=== PATIENT | male | born 1940 | race Caucasian/White ===

== ENCOUNTER 2018-03-04 13:46 | Observation (INO) ==
[2018-03-04] MEDS ORDERED: Naloxone 0.4 MG/ML INJ IVP PRN (18:54)
[2018-03-04] MEDS ORDERED: Acetaminophen 325 MG TABLET PO PRN (18:54)
[2018-03-04] MEDS ORDERED: *HR* HYDROcodone/Acet 5/325 mg TABLET PO PRN (18:54)
[2018-03-04] MEDS ORDERED: *HR* Heparin 5,000 UNIT/ML VIAL IVP PRN ×2 (19:08)
--- NOTE | 2018-03-04 19:35 | Internal Med History&Physical ---
<Wilder Noyola - Last Filed: 03/04/18 22:13> Date of Encounter: 03/04/18 Time of Encounter: 18:00 Internal Medicine - H&P: HPI Chief complaint: Chest pain Admitted From: Intrahospital Transfer Plans for Post Hospital Care: Home History of present illness: Mr. Branch is a 77 year old male w/PMH of arthritis, KAREN on CPAP @ night, HLD, HTN, kidney stones, gout, stent placement 1 in 2010 and aortic valve replacement w/porcine valve in 2011 presents from [place] with chief complaint of chest pain that began yesterday and patient describes as centralized pressure/ache in his chest which began at rest and is without radiation. Patient describes pressure as constant. Reports taking one nitroglycerin in ED which did not help. No alleviating or aggravating factors. Associated symptoms: SOB and nausea. Reports drinking one beer, or one shot of whiskey, or one glass of wine daily. Denies hx of DVT/PE. Patient denies recent illness, fever, chills, vomiting, headache, changes in vision, unusual bleeding, cough, chest congestion, abdominal pain, diarrhea, constipation, dizziness, lightheadedness, numbness, tingling, pre-syncope, or syncope. Past Med Surg Social Fam HX - Past Medical History Source: patient, old records reviewed Medical history: arthritis, hyperlipidemia, hypertension, kidney stones, other Additional medical history: GOUT Psychiatric history: no psych history - Past Surgical History Surgical History: angioplasty/stent (x1 in 2010), appendectomy, cancer surgery, cataract, coronary bypass (CABG), heart valve replacement (Porcine valve in 2011 ), prostatectomy, tonsilectomy, vasectomy - Social History Smoking Status: Former smoker Packs per day: 1 PPD. Reports quitting in 1984 Smokeless Tobacco Status: No Alcohol use: heavy, recent Drug use: none Current living situation: Home, With Family Activity Level: Independent ambulation Recent Out of Country Travel Within the Last 8 Weeks: No Exposure or Possible Exposure to Illness During Travel: No - Family History Father Race: Family Member Ethnicity: Non- Living Status: Age at : 84 Cause of : Unknown Hx Family Neuromuscular Disorders: Yes (Essential tremors) Mother Race: Family Member Ethnicity: Non- Living Status: Age at : 83 Cause of : TIAs Hx Family Cardiac Disorders: Yes (TIAs) Hx Family Neurologic Disorders: Yes (TIAs) Sister Race: Family Member Ethnicity: Non- Living Status: Still Living Hx Family Cardiac Disorders: Yes (CAD) Grandfather Race: Family Member Ethnicity: Non- Living Status: Age at : 65 Cause of : CVA Hx Family Cardiac Disorders: Yes (CVA) Hx Family Neurologic Disorders: Yes (CVA) Grandmother Race: Family Member Ethnicity: Non- Living Status: Age at : 80 Cause of : Old age Internal Medicine - H&P: Meds Allopurinol [Zyloprim 100 MG] 100 mg PO BID 11/29/15 [History] Aspirin 81 mg PO DAILY 11/29/15 [History] Atorvastatin [Lipitor] 40 mg PO DAILY 11/29/15 [History] Loratadine [Allergy Relief] 10 mg PO DAILY 03/04/18 [History] Metoprolol [Lopressor] 25 mg PO BID 03/04/18 [History] Cholecalciferol (Vitamin D3) [Vitamin D3] 2,000 unit PO DAILY 03/05/18 [History] Fluticasone Propionate Nasal [Flonase] 1 spr NS DAILY PRN 03/05/18 [History] Lisinopril [Zestril] 20 mg PO DAILY 03/05/18 [History] hydroCHLOROthiazide [Hydrochlorothiazide] 25 mg PO DAILY 03/05/18 [History] 3 Allergy/AdvReac Type Severity Reaction Status Date / Time Sulfa (Sulfonamide Allergy Severe Rash Verified 03/05/18 13:23 Antibiotics) milk AdvReac Intermediate Nausea Verified 03/05/18 13:30 All Systems PM: A 10-system review of systems was performed and is negative for pertinent findings except as documented above in the HPI. - Constitutional Constitutional: no chills, no fever(s), no night sweats - EENT Eyes: no change in vision, no discharge, no pain, no photophobia Ears: no ear discharge, no ear pain, no tinnitus Nose, mouth and throat: no dysphagia, no nasal discharge, no neck pain, no sore throat - Breasts Breasts: as per HPI - Cardiovascular Cardiovascular ROS IM: as per HPI, chest pain, dyspnea, dyspnea on exertion, irregular heart rhythm (Hx of heart murmur), no diaphoresis, no lightheadedness , no palpitations, no syncope - Respiratory Respiratory: as per HPI, dyspnea, dyspnea on exertion, no cough, no wheezing, no excessive phlegm production - Gastrointestinal Gastrointestinal: no abdominal pain, no diarrhea, no hematemesis, no hematochezia, no melena, no nausea, no vomiting - Genitourinary Genitourinary ROS male: as per HPI - Musculoskeletal Musculoskeletal ROS IM: as per HPI, no numbness, no tingling - Integumentary Integumentary IM: as per HPI, no rash, no unusual bruising - Neurological Neurological ROS: as per HPI, no confusion, no convulsions, no focal weakness, no numbness, no tingling, no tremor(s) - Psychiatric Psychiatric: as per HPI - Endocrine Endocrine IM: as per HPI - Hematologic/Lymphatic Hematologic/Lymphatic: no easy bruising - Allergic/Immunologic Allergic/Immunologic: as per HPI - Constitutional Vitals: Temp Pulse Resp BP Pulse Ox 98.2 F 75 16 173/97 96 03/04/18 16:32 03/04/18 16:32 03/04/18 16:32 03/04/18 16:32 03/04/18 16:32 General appearance: Present: cooperative, mild distress (CP), A&O X 3, pleasant , obese, answers questions appropriately - Head Head exam: Present: atraumatic, normocephalic - Eye Eye exam: Present: PERRL, conjuntiva pink, sclera anicteric Pupils: Present: PERRL - ENT ENT exam: Present: normal exam - Neck Neck exam general surgery: Present: normal inspection, supple, trachea midline. Absent: lymphadenopathy - Respiratory Respiratory exam: Present: CTAB. Absent: accessory muscle use, rales, rhonchi, wheezes - Cardiovascular Cardiovascular exam: Present: irregular rhythm - GI/Abdominal GI/Abdominal exam: Present: normal bowel sounds, soft, no peritoneal signs. Absent: distended, tenderness - Rectal Rectal exam: Present: deferred - Additional comments: exam deferred. - Extremities Exam Extremities exam: Present: warm, radial pulses palpable and symmetrical. Absent : calf tenderness, cyanotic, pedal edema - Back Exam Back exam: Present: normal inspection - Neurological Exam Neurological exam: Present: CN II-XII intact, oriented X3, no focal deficits. Absent: pronater drift, facial droop, speech deficit - Psychiatric Psychiatric exam: Present: normal affect, normal mood - Skin Skin exam: Present: dry, intact Internal Med - H&P Results - Labs CBC & Chem 7: 03/04/18 20:06 - Diagnostic Studies Chest x-ray Additional comments: EXAMINATION: SINGLE XRAY VIEW OF THE CHEST 03/04/2018 11:27 am COMPARISON: None. HISTORY: ORDERING SYSTEM PROVIDED HISTORY: chest pain Initial encounter FINDINGS: The cardiac silhouette is enlarged. There is pulmonary vascular congestion. Probable small left pleural effusion with adjacent atelectasis. The right lung is clear. No pneumothorax. No overt pulmonary edema. The osseous structures are otherwise unremarkable. Status post median sternotomy. XR/XR chest 1V portable IMPRESSION: Cardiomegaly with mild pulmonary vascular congestion and small left pleural effusion. D/ / Soni Maldonado MD / Soni Maldonado MD Interpreting Provider: Soni Maldonado MD CT scan - chest Additional comments: EXAMINATION: CTA OF THE CHEST 03/04/2018 1:25 pm TECHNIQUE: CTA of the chest was performed after the administration of intravenous contrast. Multiplanar reformatted images are provided for review. MIP images are provided for review. Dose modulation, iterative reconstruction, and/or weight based adjustment of the mA/kV was utilized to reduce the radiation dose to as low as reasonably achievable. COMPARISON: None HISTORY: ORDERING SYSTEM PROVIDED HISTORY: rule out PE 75 ml of ISOVUE 370 Acute left-sided chest pain and shortness of breath, initial exam FINDINGS: Pulmonary Arteries: There is adequate opacification of the pulmonary arteries through the segmental level. No filling defects are identified to indicate pulmonary embolic disease. The pulmonary arteries are of normal caliber. Mediastinum: The heart size is enlarged. The patient is status post sternotomy. Coronary calcification is noted. There is no pericardial effusion. Small mediastinal lymph nodes are noted. A prosthetic aortic valve is noted. Lungs/pleura: There is no pneumothorax, edema or focal consolidation. There is mild dependent atelectasis at the lung bases. Upper Abdomen: No acute process is noted in the upper abdomen. Soft Tissues/Bones: There is a probable sebaceous cyst along the left upper chest wall. An acute osseous abnormality is not identified. There is mild degenerative change of the spine. CT/CT angio chest IMPRESSION: No evidence of pulmonary embolism or acute pulmonary abnormality. Cardiomegaly. D/ / 03/04/2018 13:47:07 Roberto Finley MD / Sara Sales Interpreting Provider: Roberto Finley MD - Assessment and plan (1) Chest pain Current Visit: Yes Status: Acute Assessment and plan: Acute CP that began yesterday and patient describes as centralized pressure/ ache in his chest which began at rest and is without radiation. Patient describes pressure as constant. Reports taking one nitroglycerin in ED which did not help. No alleviating or aggravating factors. Associated symptoms: SOB and nausea. Hx of stent placement x1 in 2010. Hx of aortic valve replacement w/ porcine valve in 2011. Pt. given aspirin and nitro x1 in [place] ED. Pt. reports nitro did not help CP. States Dr. Rowe is his [facility]. Cardiology consult ordered and discussed w/Dr. Lyndon Sheehan and I appreciate the consult and recommendations as always. Continue pts. Lipitor. Continuous cardiac telemetry. Echocardiogram. Initial troponin 0.15. Second 2.38. Will trend third. Low-dose heparin drip started in [facility] and will be continued. SL Nitro PRN. NPO @ midnight per Dr. Sheehan if intervention needed in a.m. Pt. discussed w/Dr. George who agrees w/plan of care. Pt. is high risk for further morbidity and cardiac event based on current sx and CP, hx of previous stent placement and aortic valve replacement, elevated troponins requiring heparin drip w/monitoring, hx; and risk factors of HLD, HTN, and previous tobacco abuse. Observation. Qualifiers: Chest pain type: other chest pain Qualified Code(s): R07.89 - Other chest pain; R07.8 - Other chest pain (2) SOB (shortness of breath) Current Visit: Yes Status: Acute Assessment and plan: Acute SOB accompanying CP sx. supplemental O2 with titration and SPO2 monitoring. Falls/safety precautions. Up with assist only. (3) Nausea Current Visit: Yes Status: Acute Assessment and plan: Acute nausea accompanying CP. IVP Zofran 4 mg Q6HR PRN for N/V. (4) HLD (hyperlipidemia) Current Visit: Yes Status: Chronic Assessment and plan: Hx of chronic HLD. Lipid panel in a.m. labs. Continue pts. Lipitor. Qualifiers: Hyperlipidemia type: pure hypercholesterolemia Qualified Code(s): E78.00 - Pure hypercholesterolemia, unspecified; E78.0 - Pure hypercholesterolemia (5) HTN (hypertension) Current Visit: Yes Status: Chronic Assessment and plan: Hx of chronic HTN. Monitor pt. and VS. Continue patient's metoprolol daily. IVP hydralazine 10 mg every 6 hours when necessary with parameters ordered for breakthrough HTN. Hold BP meds if pt. becomes hypotensive. Qualifiers: Hypertension type: essential hypertension Qualified Code(s): I10 - Essential (primary) hypertension (6) Gout Current Visit: Yes Status: Chronic Assessment and plan: Hx of chronic gout. Continue patient's Allopurinol. Qualifiers: Gout site: unspecified site Gout etiology: unspecified cause Chronicity: chronic Presence of tophus: without tophus Qualified Code(s): M1A.9XX0 - Chronic gout, unspecified, without tophus (tophi) (7) KAREN (obstructive sleep apnea) Current Visit: Yes Status: Chronic Assessment and plan: Hx of chronic KAREN. Order CPAP HS. (8) DVT prophylaxis Current Visit: Yes Status: Acute Assessment and plan: Patient placed on low-dose heparin drip due to current chest pain and elevated troponin. Monitor patient for signs of bleeding. - Time Spent With Patient Total time spent is greater than 50% in coordination of care (as documented) at patient's floor/unit and/or counseling patient: Greater than 35 minutes <Holden George - Last Filed: 03/06/18 02:49> Date of Encounter: 03/06/18 Internal Medicine - H&P: HPI History of present illness: Mr. Branch is a 77 year old male All Systems PM: A 10-system review of systems was performed and is negative for pertinent findings except as documented above in the HPI. - Constitutional Vitals: Temp Pulse Resp BP Pulse Ox 99.5 F 80 18 118/96 92 03/05/18 23:26 03/05/18 23:50 03/05/18 23:26 03/05/18 23:26 03/05/18 23:26 Internal Med - H&P Results - Labs CBC & Chem 7: 03/05/18 05:00 03/05/18 05:00 Labs: Short CBC 03/05/18 Range/Units 05:00 WBC 11.0 (4.3-11.1) K/mcL Hgb 14.5 (12.9-16.9) g/dL Hct 42.7 (37.5-50.1) % Plt Count 184 (140-400) K/mcL Neutrophils # 8.7 (1.6-8.9) K/mcL BMP 03/05/18 05:00 Sodium 138 Potassium 4.1 Chloride 103 Carbon Dioxide 27 BUN 20 Creatinine 1.06 Glucose 148 H Calcium 9.4 Cardiac Enzymes 03/05/18 Range/Units 06:38 Troponin I 15.33 H* (< 0.04) ng/mL Liver Function 03/05/18 03/05/18 Range/Units 05:00 05:00 Total Bilirubin 1.2 H 1.3 H (0.3-1.0) mg/dL Direct Bilirubin 0.1 (0.0-0.2) mg/dL AST 99 H 98 H (13-39) Units/L ALT 22 21 (7-52) Units/L Alkaline Phosphatase 75 75 (34-104) Units/L Albumin 4.1 4.1 (3.5-5.7) g/dL - Impressions ITS Impressions Echocardiogram 03/05/18 07:00 Impressions: LVEF 60-65%. Mild concentric left ventricular hypertrophy. Indeterminate diastolic function. Normal right ventricular structure and function. Prosthetic aortic valve not well visualized. Normal function by Doppler. No significant regurgitation. Moderate mitral stenosis, MG 5 mmHg at 77 bpm. Mild-moderate tricuspid regurgitation. Mild pulmonic regurgitation. Mild pulmonary hypertension. Left Ventricular Wall Motion: Rest Echo Findings All wall segments showed normal motion. Findings: Study Quality * Technically adequate exam. ECG Findings * Normal sinus rhythm. Left Ventricle * LVEF 60-65%. * Mild concentric left ventricular hypertrophy. * Indeterminate diastolic function. Right Ventricle * Normal right ventricular structure and function. Left Atrium * Moderately dilated left atrium. Right Atrium * Normal right atrial size. Aortic Valve * No aortic regurgitation. * Prosthetic aortic valve not well visualized. * No aortic stenosis. Mitral Valve * Moderate mitral stenosis, MG 5 mmHg. * Trace mitral regurgitation. * Mitral valve leaflet excursion appears reduced but not optimally visualzied. * Moderate mitral annular calcification Tricuspid Valve * Tricuspid valve not well visualized. * Mild-moderate tricuspid regurgitation. * Estimated RA pressure is 3 mmHg. * Estimated RVSP is 42 mmHg. * Mild pulmonary hypertension. Pulmonic Valve * Pulmonic valve is not well visualized. * No pulmonic stenosis. * Mild pulmonic regurgitation. Pulmonary Artery * Pulmonary artery not well visualized. Aorta * Aorta not optimally visualized. Pericardium * There is no pericardial effusion present. Interatrial Septum * No evidence of PFO by color Doppler. IVC * The IVC is not dilated. - Attending Attestation Seen and assessed. Agree with plan per [employer] HEL[employer]. Continue management for chest pain - Assessment and plan (1) HLD (hyperlipidemia) Current Visit: No Status: Chronic Qualifiers: Hyperlipidemia type: pure hypercholesterolemia Qualified Code(s): E78.00 - Pure hypercholesterolemia, unspecified; E78.0 - Pure hypercholesterolemia (2) HTN (hypertension) Current Visit: No Status: Chronic Qualifiers: Hypertension type: essential hypertension Qualified Code(s): I10 - Essential (primary) hypertension (3) KAREN (obstructive sleep apnea) Current Visit: No Status: Chronic (4) Non-STEMI (non-ST elevated myocardial infarction) Current Visit: Yes Status: Acute - Time Spent With Patient Total time spent is greater than 50% in coordination of care (as documented) at patient's floor/unit and/or counseling patient:
[2018-03-04] MEDS ORDERED: Ondansetron 4 MG/2 ML VIAL IVP PRN (19:58)
[2018-03-04 20:30] LABS: Hematocrit 45.9 % (37.5-50.1); Hemoglobin 15.7 g/dL (12.9-16.9); Mean Corpuscular HGB Conc 34.2 g/dL (31.6-35.5); Mean Corpuscular Hemoglobin 31.6 pg (28.0-33.3); Mean Corpuscular Volume 92.4 fL (83.0-100.0); Mean Platelet Volume 9.9 fL (9.4-12.4); Platelet Count 192 K/mcL (140-400); Red Blood Count 4.97 M/mcL (4.19-5.50); Red Cell Distribution Width 13.2 % (11.5-14.5)
[2018-03-04 20:40] LABS: Heparin anti-factor XA UFH 0.53 IU/mL (0.30-0.70)
[2018-03-04 20:41] LABS: Prothrombin Time 10.9 Seconds (9.4-12.1)
[2018-03-04] MEDS: Heparin 25,000 UNIT/500 ML D5W 25,000 UNIT/500 ML BAG IVC SCH (20:58)
[2018-03-04] MEDS ORDERED: Nitroglycerin 0.4 MG TAB.SUBL SL PRN (21:08)
[2018-03-04] MEDS ORDERED: *HR* Morphine 2 MG/ML SYRINGE IVP PRN (22:15)
[2018-03-04] MEDS: hydroCHLOROthiazide 25 MG TABLET PO SCH (22:28)
[2018-03-05 05:29] LABS: Basophils % 0.2 %; Eosinophils % 0.2 %; Hematocrit 42.7 % (37.5-50.1); Hemoglobin 14.5 g/dL (12.9-16.9); Immature Granulocytes % 0.4 % (0-4); Lymphocytes # 1.5 K/mcL (0.6-4.6); Lymphocytes % 13.6 %; Mean Corpuscular Hemoglobin 31.1 pg (28.0-33.3); Mean Corpuscular Volume 91.6 fL (83.0-100.0); Monocytes # 0.7 K/mcL (0.0-1.3); Monocytes % 6.7 %; Neutrophils # 8.7 K/mcL (1.6-8.9); Platelet Count 184 K/mcL (140-400); Red Blood Count 4.66 M/mcL (4.19-5.50); Red Cell Distribution Width 13.2 % (11.5-14.5); Segmented Neutrophils % 78.9 %
[2018-03-05 05:35] LABS: Heparin anti-factor XA UFH 0.37 IU/mL (0.30-0.70); Prothrombin Time 11.4 Seconds (9.4-12.1)
[2018-03-05 05:37] LABS: Activated Partial Thrombo Time 63.7 Seconds (26.0-36.0)
[2018-03-05 05:52] LABS: Alanine Aminotransferase 22 Units/L (7-52); Albumin 4.1 g/dL (3.5-5.7); Albumin/Globulin Ratio 1.6 (1.1-2.2); Alkaline Phosphatase 75 Units/L (34-104); Aspartate Amino Transferase 99 Units/L (13-39); BUN/Creatinine Ratio 19 (6-26); Bilirubin,Total 1.2 mg/dL (0.3-1.0); Blood Urea Nitrogen 20 mg/dL (8-23); Calcium 9.4 mg/dL (8.6-10.3); Carbon Dioxide 27 mEq/L (23-29); Chloride 103 mEq/L (98-107); Chol/HDL Ratio 3.3 (0-4.9); Cholesterol 137 mg/dL (< 200); Globulin 2.5 g/dL (2.4-3.5); Glucose 148 mg/dL (70-105); HDL Cholesterol 42 mg/dL (40-59); LDL Cholesterol,Calculated 68 mg/dL (0-99); Magnesium 1.8 mg/dL (1.6-2.6); Osmolality,Calculated 291 (280-300); Potassium 4.1 mEq/L (3.5-5.1); Sodium 138 mEq/L (136-145); Total Protein 6.6 g/dL (6.4-8.9); Triglycerides 133 mg/dL (< 150); eGFR For Non-African Americans > 60 (> 60)
[2018-03-05 05:53] LABS: Albumin 4.1 g/dL (3.5-5.7); Albumin/Globulin Ratio 1.6 (1.1-2.2); Bilirubin,Direct 0.1 mg/dL (0.0-0.2); Bilirubin,Indirect 1.2 mg/dL (0.0-1.2); Bilirubin,Total 1.3 mg/dL (0.3-1.0); Globulin 2.6 g/dL (2.4-3.5); Total Protein 6.7 g/dL (6.4-8.9)
[2018-03-05 07:09] LABS: Estimated Average Glucose 123 mg/dl; Hemoglobin A1C 5.9 %
[2018-03-05] MEDS: Aspirin 81 MG TAB.CHEW PO SCH (08:51)
[2018-03-05] MEDS: hydroCHLOROthiazide 25 MG TABLET PO SCH ×2 (08:51→16:26)
--- NOTE | 2018-03-05 08:56 | Cardiology Consult Note ---
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), s/p stent x 1 2010 -pt was put on heparin drip as per protocol in the ER, nitroglycerin sublingual as needed -on home meds - Lopressor, Lipitor, ASA -troponins 2.38 ---> 4.30 ---> 15.33 -first EKG showed - LAD, first degree AV block, nonspecific ST and T wave abnormalities; second EKG is pending -type 1 OH (primary coronary event) -CXR showed cardiomegaly with mild pulmonary vascular congestion and small left pleural effusion -CT chest showed no evidence of pulmonary embolism or acute pulmonary abnormality -last ECHO (01/31/17) = LVEF = 60%, concentric LVH, s/p bioprostetic AVR, moderate TV regurgitation Plan: -continue nitro SL prn -continue heparin drip -pt is on metoprolol 25mg, lipitor 20mg, ASA 81mg PO everyday -consider increasing lipitor to a higher dose -ECHO pending -second EKG ordered, pending -JAKI score -5 , would benefit from early LHC -currently NPO -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 if 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 (2) SOB (shortness of breath) Current Visit: Yes Status: Acute Acute on chronic exacerbation of SOB -pt has a hx of KAREN -pt cannot lay flat at night, needs pillows to help sit up -CXR - cardiomegal with mild pulmonary vascular congestion and small left pleural effusion -CT negative for PE or acute pulmonary abnormality Plan: -continue supplemental O2 as needed, SPO2 monitoring -CPAP at night -one time Lasix 20mg IVP (3) HLD (hyperlipidemia) Current Visit: No Status: Chronic Pt is on Lipitor 20mg PO daily -TG - 133, cholesterol - 137, LDL 68, HDL 42 Plan -continue home lipitor -encourage pt to follow a heart healthy low fat, low cholesterol diet -consider increasing Lipitor to a high dose statin as pt has many cardiac risk factors Qualifiers: Hyperlipidemia type: pure hypercholesterolemia Qualified Code(s): E78.00 - Pure hypercholesterolemia, unspecified; E78.0 - Pure hypercholesterolemia (4) HTN (hypertension) Current Visit: No Status: Chronic BP today is 159/86 -poorly controlled Plan -hydralazine 10mg IVP q6hr prn SBP >160 -continue home meds -pt is on Lopressor 25mg BID, HCTZ 12.5mg PO daily Qualifiers: Hypertension type: essential hypertension Qualified Code(s): I10 - Essential (primary) hypertension (5) KAREN (obstructive sleep apnea) Current Visit: No Status: Chronic On CPAP at night. Discussion w patient/family: The assessment and plan as outlined above was discussed with the patient and/or family members who expressed understanding and agreement. All questions were answered. Thank you for involving us in the care of your patient. Please call with any questions. History of Present Illness Consult date: 03/04/18 Requesting physician: Wilder Noyola Consult reason: Chest pain Chief complaint: "chest pain" History of present illness: Mr. Branch is a 77 year old male who presented to the ER yesterday after chest pain that started 2-3 days ago. He states that over the last few days he has been having increasingly severe chest pain that is retrosternal in location. He denies any radiation of the chest pain to the neck, arm, or back. He states that the pain was a 2 or 3/10 at the worst and nothing made it better or worse. He states it was achy pain, like "someone was punching him in the chest." It is the first time he has ever had chest pain in this nature. He denies any hx of heart attacks in the past. The patient endorses nausea on and off, states that the Zofran has helped him. He denies any vomiting episodes. He also has c/o SOB, which has been worse over the last few days. He cannot lay flat in bed. He also states that he cant walk up a flight of stairs without catching his breath and is unable to go to the grocery store without using a cart as he cant walk around the store for long periods of time. The pt is s/p stent x 1 in 2010. He is s/p AV replacement with porcine material in 2011. He has a PMH of arthritis, KAREN, HLD, HTN, kidney stones, gout and CKD. At this time the patient has no c/o chest pain, he says it is much better now. He only c/o nausea but states that the zofran has also made that much better. Fluids - none Electrolytes - all WNL Nutrition - currently NPO in case of LHC DVT propylaxis - on heparin drip GI prophylaxis - not indicated Past Med Surg Social Fam HX - Past Medical History Medical history: arthritis, hyperlipidemia, hypertension, kidney stones, other Additional medical history: GOUT Psychiatric history: no psych history - Past Surgical History Surgical History: angioplasty/stent (x1 in 2010), appendectomy, cancer surgery, cataract, coronary bypass (CABG), heart valve replacement (Porcine valve in 2011 ), prostatectomy, tonsilectomy, vasectomy - Social History Smoking Status: Former smoker Packs per day: 1 PPD. Reports quitting in 1984 Smokeless Tobacco Status: No Alcohol use: heavy, recent Drug use: none - Family History Father Race: Family Member Ethnicity: Non- Living Status: Age at : 84 Cause of : Unknown Hx Family Neuromuscular Disorders: Yes (Essential tremors) Mother Race: Family Member Ethnicity: Non- Living Status: Age at : 83 Cause of : TIAs Hx Family Cardiac Disorders: Yes (TIAs) Hx Family Neurologic Disorders: Yes (TIAs) Sister Race: Family Member Ethnicity: Non- Living Status: Still Living Hx Family Cardiac Disorders: Yes (CAD) Grandfather Race: Family Member Ethnicity: Non- Living Status: Age at : 65 Cause of : CVA Hx Family Cardiac Disorders: Yes (CVA) Hx Family Neurologic Disorders: Yes (CVA) Grandmother Race: Family Member Ethnicity: Non- Living Status: Age at : 80 Cause of : Old age Medications and Allergies Allopurinol [Zyloprim 100 MG] 100 mg PO BID 11/29/15 [History] Aspirin 81 mg PO DAILY 11/29/15 [History] Atorvastatin [Lipitor] 20 mg PO BID 11/29/15 [History] hydroCHLOROthiazide [Hydrochlorothiazide] 12.5 mg PO BID 11/29/15 [History] Fluticasone Furoate [Arnuity Ellipta] 100 mcg IH DAILY 03/04/18 [History] Loratadine [Allergy Relief] 10 mg PO DAILY 03/04/18 [History] Metoprolol [Lopressor] 25 mg PO BID 03/04/18 [History] 3 Allergy/AdvReac Type Severity Reaction Status Date / Time Sulfa (Sulfonamide Allergy Severe Rash Verified 03/04/18 11:05 Antibiotics) milk Allergy Intermediate Nausea Verified 03/04/18 11:05 All Systems Review: The remainder of the systems were reviewed and are negative - Constitutional Constitutional: fatigue, snoring, no chills, no fever(s) - EENT Eyes: blurred vision - Cardiovascular Cardiovascular: chest pain with exertion, dyspnea on exertion, orthopnea, palpitations, paroxysmal nocturnal dyspnea, no radiating jaw, neck or arm pain, no syncope - Respiratory Respiratory: dyspnea, no cough, no wheezing - Gastrointestinal Gastrointestinal: nausea, no abdominal pain, no diarrhea - Genitourinary Genitourinary: no dysuria, no hematuria - Integumentary Integumentary: no erythema, no unusual bruising - Neurological Neurological: no abnormal speech, no numbness, no tingling Physical Examination Vital Signs, Last 4 Hours Temp Pulse Resp BP Pulse Ox 03/05/18 07:51 98.1 F 77 16 159/86 98 03/05/18 05:30 98.4 F 75 14 138/81 95 General: Conversant HEENT: Atraumatic Neck: No JVD Cardiac: Other (systolic murmur LSB/RSB) Lungs: Normal Breath Sounds Neuro: Alert and responsive, No focal deficits noted Abdomen: Soft, Non-Tender Skin: No rashes noted on visualized skin Musculoskeletal: No Chest Wall Tenderness Extremities: No Edema Results 03/05/18 05:00 03/05/18 05:00 Lab Results 03/04/18 03/04/18 03/04/18 20:06 20:06 20:06 WBC 9.6 Hgb 15.7 Hct 45.9 Plt Count 192 INR 1.0 APTT Sodium Potassium Chloride Carbon Dioxide BUN Creatinine Glucose Calcium Magnesium Total Bilirubin AST ALT Alkaline Phosphatase Troponin I 2.38 H* TSH 03/05/18 03/05/18 03/05/18 01:19 05:00 05:00 WBC 11.0 Hgb 14.5 Hct 42.7 Plt Count 184 INR APTT Sodium 138 Potassium 4.1 Chloride 103 Carbon Dioxide 27 BUN 20 Creatinine 1.06 Glucose 148 H Calcium 9.4 Magnesium 1.8 Total Bilirubin 1.2 H AST 99 H ALT 22 Alkaline Phosphatase 75 Troponin I 4.30 H* TSH 03/05/18 03/05/18 03/05/18 05:00 05:00 05:00 WBC Hgb Hct Plt Count INR 1.0 APTT 63.7 H D Sodium Potassium Chloride Carbon Dioxide BUN Creatinine Glucose Calcium Magnesium Total Bilirubin 1.3 H AST 98 H ALT 21 Alkaline Phosphatase 75 Troponin I TSH 0.755 03/05/18 06:38 WBC Hgb Hct Plt Count INR APTT Sodium Potassium Chloride Carbon Dioxide BUN Creatinine Glucose Calcium Magnesium Total Bilirubin AST ALT Alkaline Phosphatase Troponin I 15.33 H* TSH Consult Discharge Plan - Plan Referrals: Faviola Lee, [employer] [Primary Care Provider] -
[2018-03-05] MEDS ORDERED: Furosemide 20 MG/2 ML VIAL IVP ONE (09:15)
[2018-03-05] MEDS ORDERED: 0.9 % Sodium Chloride 1,000 ML ONE ×2 (12:08→12:47)
[2018-03-05] MEDS ORDERED: Heparin 1,000 UNITS/500 mL 500 ML ONE (12:08)
[2018-03-05] MEDS ORDERED: ISOVUE-370 200 ML INFUS..BTL IV ONE ×3 (12:08→13:40)
[2018-03-05] MEDS ORDERED: *HR* Heparin 10,000 UNIT/10 ML VIAL ONE (12:08)
[2018-03-05] MEDS ORDERED: Nitroglycerin 1,000 MCG/10 ML VIAL IV ONE (12:08)
--- NOTE | 2018-03-05 12:11 | Pre-Sedation Evaluation ---
Pre-sedation evaluation - Pre-sedation checklist Date of procedure: 03/05/18 Procedure: LHC Recent Vitals: Last Vital Signs Temp 97.7 F 03/05/18 11:16 Pulse 69 03/05/18 11:16 Resp 16 03/05/18 11:16 BP 135/77 03/05/18 11:16 Pulse Ox 94 03/05/18 11:16 ASA Classification *see protocol: CLASS II-Mild systemic disease Cardiac Registry (Cardio Only) - Functional Capacity Functional Capacity: >=4 METS with symptoms - Clincal Frailty Scale Clinical Frailty Scale: Mildly Frail
[2018-03-05] MEDS ORDERED: Tirofiban 12.5 MG/250ML 12.5 MG/250 ML BAG ONE (12:35)
[2018-03-05] MEDS ORDERED: *HR* FentaNYL (PF) 100 MCG/2 ML VIAL ONE (12:53)
[2018-03-05] MEDS ORDERED: *HR* Midazolam HCl 2 MG/2 ML VIAL ONE (12:53)
[2018-03-05] MEDS ORDERED: Tirofiban 12.5 MG/250ML 12.5 MG/250 ML BAG IVC SCH (14:30)
--- NOTE | 2018-03-05 14:45 | Invasive Diagnostic Lab Proc ---
Name: Cesar Branch Date of Study: 03/05/2018 Date: 1940 Ht: 68.1in Medical Record#: [id number] Age: 77 Wt: 255.74lb Gender: Male BSA: 2.27 Order #: [id number] BMI: 38.76 Physicians Procedure Physician: Diogo Bosch MD Referring MD: Referring MD: Staff Name Position [facility] Monitor 12:51 PM Kady Kim RN Associate Attorney 12:51 PM Nirmal Welsh RT (R) Scrub 12:51 PM Indications Indication Non-Stemi Procedures Performed Procedure CORONARY ARTERY ANGIO S&I PRQ CARDIAC ANGIOPLAST 1 ART Pre-Procedure Checklist Informed consent is complete signed and on chart. H&P is on chart. ID band is on and ID verified with patient. Patient NPO for procedure The procedure was described for the patient and questions were answered. Blood Pressure: 135/77 ECG is on chart. Rhythm: NSR Plan of Care Patient will tolerate the procedure without complications. Adequate level of comfort will be maintained. Hemodynamics will remain stable Patient will recover from procedure without complications. Respiratory function will be maintained. Cardiac rhythm will remain stable. Patient temperature will be maintained. Patient and/or family have verbalized understanding of the procedure. Patient Education Chief Complaint/Reason for Test: Cardiac Cath Developmental Category: Geriatric (65+ years) Developmentally Appropriate for Age: Yes Learning Barriers: None Education Needs: Procedure Education Method: Verbal Information Taught: Cardiac Cath Educational Evaluation: Able to repeat information Intravenous Access Time IV Size Location DC'd Fluid/Drip Rate Units RN 12:20 PM 18g 1 08/08" Patent On Arrival Allergies Sulfa (Sulfonamide Antibiotics) SULFA (sulfonamide) milk Vital Signs Time BP (mmHg) HR (bpm) O2 Sat. RR (bpm) LOC 12:26 PM 135 / 77 69 94 % 16 5 = Fully awake and oriented or at pre-proc level 12:52 PM / % 5 = Fully awake and oriented or at pre-proc level 12:52 PM / % 4 = Oriented but drowsy 01:07 PM / % 4 = Oriented but drowsy 01:22 PM / % 4 = Oriented but drowsy 01:38 PM / % 4 = Oriented but drowsy 12:53 PM 174 / 103 79 95 % 16 12:57 PM 175 / 101 82 92 % 18 01:02 PM 164 / 97 83 93 % 17 01:07 PM 156 / 99 94 94 % 31 01:12 PM 152 / 86 89 93 % 18 01:17 PM 151 / 85 87 94 % 18 01:22 PM 141 / 81 91 95 % 18 01:27 PM 135 / 87 88 95 % 15 01:32 PM 146 / 86 84 96 % 16 01:37 PM 147 / 91 81 97 % 18 01:42 PM 161 / 85 79 97 % 18 01:47 PM 151 / 89 83 97 % 17 01:52 PM 147 / 83 75 97 % 18 01:57 PM 146 / 79 74 97 % 15 01:53 PM / % 4 = Oriented but drowsy 02:21 PM 114 / 64 74 91 % 16 5 = Fully awake and oriented or at pre-proc level Procedural Medications Time Medication Dose Units Method Given By 12:51 PM Oxygen 2 L/min nasal cannula Kady Kim RN 01:05 PM Versed 0.5 mg Intravenous Kady Kim RN 01:05 PM Fentanyl 25 mcg Intravenous Kady Kim RN 01:05 PM Lidocaine 2% 20 ml Subcutaneous Diogo Bosch MD 01:18 PM Heparin 5000 units Intravenous Kady Kim RN 01:22 PM Aggrastat Bolus: 58 ml Intravenous Kady Kim RN 01:22 PM Aggrastat 12.5mg/250ml 21 ml/hr Intravenous Kady Kim RN 02:02 PM Plavix 600 mg Orally Kady Kim RN 12:53 PM Versed 1 mg Intravenous Kady Kim RN 12:53 PM Fentanyl 50 mcg Intravenous Kady Kim RN ASA Classification: CLASS II- Mild systemic disease (i.e. well-controlled diabetes, hypertension, asthma, cigarette smoking) Fide Score Preprocedure Postprocedure Activity 2- Moves 4 extremities sustained head lift Activity 2- Moves 4 extremities sustained head lift Circulation 2- SBP +/= 20 points of pre-anesthetic level Circulation 2- SBP +/= 20 points of pre-anesthetic level Consciousness 2- Awake and alert oriented x 3 Consciousness 2- Awake and alert oriented x 3 O2 Saturation 2- Able to maintain O2 satruation of 92% on room air O2 Saturation 2- Able to maintain O2 satruation of 92% on room air Respiratory 2- Able to deep breathe and cough well Respiratory 2- Able to deep breathe and cough well Total Score 10 Total Score 10 Contrast Agent: Isovue Diagnostic Contrast: 155 ml Total Contrast: 155 ml Fluoro Dose: 291 mGy Activated Clotting Time Time Seconds to Clot 01:15 PM 159 01:54 PM 255 Procedure Log Time Note Enter By 12:12 PM CathStat 12:50 PM [facility] arrived [facility] 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 Bilateral groin prepped with Chloraprep by Bryanna Welsh RT (R), then patient was draped. Skin intact. [facility] 12:51 PM Physican paged/called 12:51. [facility] 12:51 PM Physican responded and notified patient is ready 12:51 [facility] 12:51 PM Physician arrived 12:51 [facility] 12:51 PM Meet and greet completed [facility] 12:51 PM Sign in performed according to hospital policy. [facility] 12:51 PM Procedure start 12:51 [facility] 12:51 PM Case Start 12:51 PM Vitals capture started with the following parameters, Patient=Adult, Interval=5 min, Initial Fufrirvs=486 mmHg, Deflation Rate=3 mmHg, Cuff placed on Right Arm 12:51 PM Recorded ECG: HR=84 Condition=Condition 1 12:51 PM Time: 12:51 Oxygen on at 2 L/min per nasal cannula by Kady Kim RN [facility] 12:52 PM Time: 12:52 Patient comfortable and pain free: Yes tsoummers 12:52 PM Time: 12:52LOC: 5 = Fully awake and oriented or at pre-proc level [facility] 12:52 PM Clinical Presentation: [facility] 12[facility]53 PM Time: 12:53 Versed 1 mg Intravenous Given by Kady Kim RN 12:53 PM HR=79 bpm, ZZMA=238/103 mmhg, SpO2=95.0 %, Resp=16 B/min, EtCO2=44 mmHg, Comment=nsr 12:53 PM Time: 12:53 Fentanyl 50 mcg Intravenous Given by Kady Kim RN 12:55 PM ASA Class CLASS II- Mild systemic disease (i.e. well-controlled diabetes, hypertension, asthma, cigarette smoking) chiquita 12:57 PM HR=82 bpm, OSXC=129/101 mmhg, SpO2=92.0 %, Resp=18 B/min, EtCO2=45 mmHg, Comment=nsr 01:01 PM Pressure channel 1 zeroed. 01:02 PM HR=83 bpm, AGDV=513/97 mmhg, SpO2=93.0 %, Resp=17 B/min, EtCO2=45 mmHg, Comment=nsr 01:05 PM Time out performed according to hospital policy blake 01:05 PM Time: 13:05 Versed 0.5 mg Intravenous Given by Kady Kim RN 01:05 PM Time: 13:05 Fentanyl 25 mcg Intravenous Given by Kady Kim RN 01:05 PM Time: 13:05 20 ml Lidocaine 2% to right groin Subcutaneous Given by MD chiquita Panda 01:07 PM HR=94 bpm, LKWK=565/99 mmhg, SpO2=94.0 %, Resp=31 B/min, EtCO2=43 mmHg, Comment=nsr 01: PM Time: 12:52LOC: 4 = Oriented but drowsy blake 01:07 PM Time: 12:52 Patient comfortable and pain free: Yes chiquita 01:08 PM Micro-Introducer Kit utilized for sheath placement blake :08 PM Access obtained by percutaneous puncture. 6Fr 10cm Terumo [place] sheath placed in right Femoral artery. [id number] chiquita 01:10 PM 0.035 145cm Navilyst 3mmJ wire [id number] chiquita 01:10 PM 5Fr FR 4 catheter inserted over the wire [facility] blake :10 PM wire removed 01:10 PM RCA angiography performed in multiple views. 01:10 PM Recorded Pressure: Ao, HR=84, Condition=Condition 1 (Aorta) Ao 123/83/103 01:11 PM Coronary Dominance: right 01:11 PM Catheter removed 01:12 PM 5Fr FL 4 catheter inserted over the wire DNC 01:12 PM LCA angiography performed in multiple views. 01:12 PM HR=89 bpm, YRGU=038/86 mmhg, SpO2=93.0 %, Resp=18 B/min, EtCO2=45 mmHg, Comment=nsr 01:13 PM Recorded Pressure: Ao, HR=89, Condition=Condition 1 (Aorta) Ao 139/85/110 01:15 PM Recorded Pressure: Ao, HR=84, Condition=Condition 1 (Aorta) Ao 123/77/99 01:15 PM At 13:15 the ACT was 159 seconds. 01:16 PM Catheter removed :17 PM Lesion found in 1st Marginal. Pre Stenosis: 90 Pre JAKI Flow: 2 :17 PM Circumflex, Obtuse Marginal, Left Posterior Descending, and Left Posterolateral Coronary Arteries with 90 % stenosis. If graft is supplying this area, 0 % stenosis :17 PM HR=87 bpm, QIVT=712/85 mmhg, SpO2=94.0 %, Resp=18 B/min, EtCO2=45 mmHg, Comment=nsr 01:17 PM Pressure channel 1 zero failed. 01:18 PM Time: 13:18 Heparin 5000 units Intravenous Given by Kady Kim RN [email or web address] 01:20 PM Inflation device was opened. 01:20 PM Sheath exchanged for a 6 Fr 45 cm Terumo Destination sheath [id number] ou 01:21 PM 6Fr CLS 3.5 Runway guide catheter was used to cannulate the PCI vessel successfully. reused? No mm:22 PM Time: 13:22 Aggrastat Bolus: 58 ml Intravenous Given by Kady Kim RN Jacques pump blake :22 PM Time: 13:22 Aggrastat 12.5mg/250ml 21 ml/hr Intravenous Given by Parsley, Kady RN Jacques pump [email or web address] 01:22 PM HR=91 bpm, VPLC=069/81 mmhg, SpO2=95.0 %, Resp=18 B/min, EtCO2=44 mmHg, Comment=nsr 01:22 PM Time: 13:07 Patient comfortable and pain free: Yes tsoummers 01:22 PM Time: 13:07LOC: 4 = Oriented but drowsy tsoummers 01:25 PM Guide catheter removed intact. tsoummers 01:25 PM guide catheter reinserted tsoummers 01:27 PM HR=88 bpm, UPGK=678/87 mmhg, SpO2=95.0 %, Resp=15 B/min, EtCO2=44 mmHg, Comment=nsr 01:28 PM guide catheter removed tsoummers 01:29 PM Amplatz super stiff wire 260cm inserted tsoummers 01:30 PM guide catheter reinserted tsoummers 01:32 PM wire removed tsoummers 01:32 PM Recorded Pressure: Ao, HR=85, Condition=Condition 1 (Aorta) Ao 135/79/104 01:32 PM HR=84 bpm, POFZ=292/86 mmhg, SpO2=96.0 %, Resp=16 B/min, EtCO2=44 mmHg 01:32 PM .014 [employer] [place] 190cm guide wire across target lesion- successful. reused? No tsoummers 01:33 PM .014 [employer] [place] 190cm guide wire across target lesion- successful. reused? No tsoummers 01:37 PM HR=81 bpm, LIAO=543/91 mmhg, SpO2=97.0 %, Resp=18 B/min, EtCO2=48 mmHg, Comment=nsr 01:38 PM Time: 13:22LOC: 4 = Oriented but drowsy tsoummers 01:38 PM Time: 13:22 Patient comfortable and pain free: Yes tsoummers 01:38 PM 2.0 mm x 12 mm Emerge Monorail balloon across target lesion- successful. reused? No tsoummers 01:39 PM Balloon inflated @ 6 chapito for 9 seconds tsoummers 01:40 PM Balloon inflated @ 8 chapito for 8 seconds tsoummers 01:40 PM Balloon inflated @ 6 chapito for 7 seconds tsoummers 01:40 PM Balloon catheter removed intact. tsoummers 01:42 PM HR=79 bpm, XOCN=954/85 mmhg, SpO2=97.0 %, Resp=18 B/min, EtCO2=44 mmHg, Comment=nsr 01:43 PM 2.75mm x 24mm Synergy drug-eluting stent across target lesion- successful Lot #[id number] tsoummers 01:44 PM Stent removed intact. Not deployed tsoummers 01:46 PM 2.75mm x 23mm Xience Melody CARMEN drug-eluting stent across target lesion- successful Lot #[id number] tsoummers 01:47 PM HR=83 bpm, DPAM=718/89 mmhg, SpO2=97.0 %, Resp=17 B/min, EtCO2=48 mmHg, Comment=nsr 01:50 PM Stent removed intact. not deployed tsoummers 01:50 PM 2.5 mm x 20 mm Emerge Monorail balloon across target lesion- successful. reused? No tsoummers 01:52 PM HR=75 bpm, GMNP=945/83 mmhg, SpO2=97.0 %, Resp=18 B/min, Comment=nsr 01:53 PM Time: 13:38 Patient comfortable and pain free: Yes tsoummers 01:53 PM Time: 13:38LOC: 4 = Oriented but drowsy tsoummers 01:53 PM Balloon inflated @ 8 chapito for 19 seconds tsoummers 01:54 PM Balloon inflated @ 10 chapito for 18 seconds tsoummers 01:55 PM Balloon inflated @ 10 chapito for 20 seconds tsoummers 01:55 PM Balloon inflated @ 8 chapito for 15 seconds tsoummers 01:56 PM Balloon catheter removed intact. tsoummers 01:57 PM HR=74 bpm, RBOD=747/79 mmhg, SpO2=97.0 %, Resp=15 B/min, Comment=nsr 01:57 PM Guide wire removed intact. tsoummers 01:58 PM Guide wire removed intact. tsoummers 01:58 PM Guide catheter removed intact. [email or web address] 01:58 PM Sheath exchanged for a 6 Fr 11 cm Cordis Christel sheath [id number] chiquita 02:02 PM Procedure completed at 14:02 03/05/2018 [email or web address] 02:02 PM Time: 14:02 Plavix 600 mg Orally Given by Kady Kim RN tsoummers 02:05 PM Did you address JAKI flow and Dominance? Yes tsoummers 02:05 PM Sign out completed: Radiation Dose 2796.89 mGy, 291.02 Gy/cm2 Fluoro Time: 21.4 Isovue 370 - 200ml contrast 155 ml given by Diogo Bosch MD. Complications: NoneCardiac Rehab Consult needed: YesConfirmed administered medications: Yes tsoummers 02:05 PM Isovue 370 - 200ml,2 Bottle(s) used. tsoummers 02:05 PM Sheath left in place to be pulled on floor/holding area tsoummers 02:06 PM Estimated Blood Loss: less than 20cc tsoummers 02:06 PM Post ECG NSR tsoummers 02:06 PM Post Blood Pressure 134/77 tsoummers 02:06 PM 14:06 Post Pulses Bilateral DP & PT 2+ tsoummers 02:06 PM Information taught Cardiac Cath and PCI tsoummers 02:07 PM Education needs Procedure, Plan of Care, and Responsibilities of Patient in Care tsoummers 02:07 PM Learning barriers :None tsoummers 02:07 PM Education Methods Verbal tsoummers 02:07 PM Education evaluation Able to repeat information tsoummers 02:07 PM Site status No bleeding/hematoma - Rt Groin as reported by Nirmal Welsh RT (R) at 14:07 tsoummers 02:07 PM Opsite applied tsoummers 02:07 PM Plavix, Effient or Brilinta given Yes tsoummers 02:07 PM Delay to floor yes bed availability for sheath tsoummers 02:07 PM Family placed in consult room. tsoummers 02:07 PM Complications: None tsoummers 02:08 PM Time: 13:53LOC: 4 = Oriented but drowsy tsoummers 02:08 PM Time: 13:53 Patient comfortable and pain free: Yes tsoummers 02:09 PM waiting for bed management to return phone call for pt room assignment tsoummers 02:10 PM Patient out of room: 14:10 tsoummers 02:10 PM Lesion found in Mid RCA. Pre Stenosis: 60 Pre JAKI Flow: tsoummers 02:10 PM Lesion found in Distal Circumflex. Pre Stenosis: 60 Pre JAKI Flow: tsoummers 02:11 PM Lesion found in Right PAV. Pre Stenosis: 90 Pre JAKI Flow: 02:11 PM Right Coronary, Right Posterior Descending Arteries with Right Posterolateral and Acute Marginal branches with 90 % stenosis. If graft is supplying this area, 0 % stenosis 02:15 PM Report given to Oleg RN Pt taken to Holding room Room #2. 14:15 tsmmers 02:15 PM Aggrastat will run for 8hrs per verbal order Dr. Bosch. 02:39 PM Report given to RN Pt taken to 2N Room #9. 14:39 [email or web address] 02:39 PM Patient out of room: 14:39 [email or web address] Complications Complication None Hemodynamics Pressures Site Systolic/A Wave Diastolic/V Wave Mean AO 123 83 103 AO 139 85 110 AO 123 77 99 AO 135 79 104 Post Procedure Information Blood Pressure: 134/77 mmHg Rhythm: NSR Post procedural instructions were given Site Checks Time Location Status Staff Sheath In? Note 02:07 PM Rt Groin No bleeding/hematoma Nirmal Welsh RT (R) 02:21 PM Rt Groin No bleeding/ No Hematoma Kaley Reardon RT (R) Pulses Time Site Pre-Procedure Post-Procedure Note 03/05/2018 12:20:00 PM Bilateral radial 2+ 03/05/2018 12:20:00 PM Bilateral DP & PT 2+ 2:06:00 PM Bilateral DP & PT 2+ 03/05/2018 2:21:00 PM Bilateral DP & PT 2+ Updated by Kaley Reardon, RT(R) on 03/05/2018 2:39:45 PM electronically signed on 03/05/2018 2:40:20 PM with status of Final
[2018-03-05] MEDS ORDERED: Fluticasone Propionate Nasal 50 MCG/SPRAY BOTTLE NS PRN (14:59)
[2018-03-05] MEDS ORDERED: *HR* Atropine Sulfate 1 MG/10 ML SYRINGE ONE (17:09)
--- NOTE | 2018-03-05 17:29 | Internal Med Progress Note ---
Hospitalist Progress Note - Encounter Date of Encounter: 03/05/18 Time of Encounter: 15:26 - Exam Vitals: Temp Pulse Resp BP Pulse Ox 98.0 F 84 18 138/78 96 03/05/18 16:00 03/05/18 16:21 03/05/18 16:00 03/05/18 16:00 03/05/18 16:00 Exam: Gen: NAD, AAOx3 CVS: RRR, systolic murmur Lungs; decreased breath sounds at bases, no wrr Abd: NT, ND Ext: no edema, no cyanosis - Assessment and Plan (1) Non-STEMI (non-ST elevated myocardial infarction) Current Visit: Yes Status: Acute Assessment and Plan: Troponin peaked at 15 He has returned from cardiac catheterization s/p angioplasty Currently at bedside he is in no acute distress Hemodynamically stable Cardiology following, recommendations appreciated. (2) HLD (hyperlipidemia) Current Visit: No Status: Chronic Assessment and Plan: Continue Lipitor (3) HTN (hypertension) Current Visit: No Status: Chronic Assessment and Plan: IVP hydralazine 10 mg every 6 hours when necessary with parameters ordered for breakthrough HTN. Hold BP meds if pt. becomes hypotensive. Continue Home medications per schedule (4) KAREN (obstructive sleep apnea) Current Visit: No Status: Chronic Assessment and Plan: CPAP HS. - Time Spent with Patient Total time spent is greater than 50% in coordination of care (as documented) at patient's floor/unit and/or counseling patient: Internal Medicine: Result - Labs CBC & Chem 7: 03/05/18 05:00 03/05/18 05:00 Labs: Short CBC 03/04/18 03/05/18 Range/Units 20:06 05:00 WBC 9.6 11.0 (4.3-11.1) K/mcL Hgb 15.7 14.5 (12.9-16.9) g/dL Hct 45.9 42.7 (37.5-50.1) % Plt Count 192 184 (140-400) K/mcL Neutrophils # 8.7 (1.6-8.9) K/mcL BMP 03/05/18 05:00 Sodium 138 Potassium 4.1 Chloride 103 Carbon Dioxide 27 BUN 20 Creatinine 1.06 Glucose 148 H Calcium 9.4 Cardiac Enzymes 03/04/18 03/05/18 03/05/18 Range/Units 20:06 01:19 06:38 Troponin I 2.38 H* 4.30 H* 15.33 H* (< 0.04) ng/mL Liver Function 03/05/18 03/05/18 Range/Units 05:00 05:00 Total Bilirubin 1.2 H 1.3 H (0.3-1.0) mg/dL Direct Bilirubin 0.1 (0.0-0.2) mg/dL AST 99 H 98 H (13-39) Units/L ALT 22 21 (7-52) Units/L Alkaline Phosphatase 75 75 (34-104) Units/L Albumin 4.1 4.1 (3.5-5.7) g/dL - ABG Interpretation ABG results: PT/INR, D-dimer PT 11.4 Seconds (9.4-12.1) 03/05/18 05:00 - Impressions Impressions Echocardiogram 03/05/18 07:00 Impressions: LVEF 60-65%. Mild concentric left ventricular hypertrophy. Indeterminate diastolic function. Normal right ventricular structure and function. Prosthetic aortic valve not well visualized. Normal function by Doppler. No significant regurgitation. Moderate mitral stenosis, MG 5 mmHg at 77 bpm. Mild-moderate tricuspid regurgitation. Mild pulmonic regurgitation. Mild pulmonary hypertension. Left Ventricular Wall Motion: Rest Echo Findings All wall segments showed normal motion. Findings: Study Quality * Technically adequate exam. ECG Findings * Normal sinus rhythm. Left Ventricle * LVEF 60-65%. * Mild concentric left ventricular hypertrophy. * Indeterminate diastolic function. Right Ventricle * Normal right ventricular structure and function. Left Atrium * Moderately dilated left atrium. Right Atrium * Normal right atrial size. Aortic Valve * No aortic regurgitation. * Prosthetic aortic valve not well visualized. * No aortic stenosis. Mitral Valve * Moderate mitral stenosis, MG 5 mmHg. * Trace mitral regurgitation. * Mitral valve leaflet excursion appears reduced but not optimally visualzied. * Moderate mitral annular calcification Tricuspid Valve * Tricuspid valve not well visualized. * Mild-moderate tricuspid regurgitation. * Estimated RA pressure is 3 mmHg. * Estimated RVSP is 42 mmHg. * Mild pulmonary hypertension. Pulmonic Valve * Pulmonic valve is not well visualized. * No pulmonic stenosis. * Mild pulmonic regurgitation. Pulmonary Artery * Pulmonary artery not well visualized. Aorta * Aorta not optimally visualized. Pericardium * There is no pericardial effusion present. Interatrial Septum * No evidence of PFO by color Doppler. IVC * The IVC is not dilated. Consult Discharge Plan - Plan Referrals: Faviola Lee, IMELDA [Primary Care Provider] - 03/11/18 3:00 pm Diogo Bosch [Partnered Physician] - (office will call the pstient at home) (2) HLD (hyperlipidemia) Qualifiers: Hyperlipidemia type: pure hypercholesterolemia Qualified Code(s): E78.00 - Pure hypercholesterolemia, unspecified; E78.0 - Pure hypercholesterolemia (3) HTN (hypertension) Qualifiers: Hypertension type: essential hypertension Qualified Code(s): I10 - Essential (primary) hypertension
[2018-03-05] MEDS ORDERED: hydroCHLOROthiazide 25 MG TABLET PO SCH (17:36)
[2018-03-05] MEDS: *HR* Metoprolol 5 MG/5 ML VIAL IVP SCH (18:25)
--- NOTE | 2018-03-05 20:21 | Electrocardiograph Report ---
[place] [id number] Test Date: 2018-03-05 Pat Name: Cesar Branch Department: 111 Room: 2N09 Gender: M Loan Approver: : 1940 Requested By: César Muñoz Order Number: [id number] Reading MD: Loan Rowe Measurements Intervals Corn Rate: 75 P: 38 TX: 211 QRS: -36 QRSD: 98 T: 91 QT: 400 QTc: 429 Interpretive Statements SINUS RHYTHM WITH FIRST DEGREE AV BLOCK LEFT AXIS DEVIATION LEFT VENTRICULAR HYPERTROPHY AND ST-T CHANGE Electronically Signed On 03-05-2018 17:03:30 EDT by Loan Rowe
[2018-03-05] MEDS: Heparin 25,000 UNIT/500 ML D5W 25,000 UNIT/500 ML BAG IVC SCH (22:09)
[2018-03-06] MEDS: *HR* Metoprolol 5 MG/5 ML VIAL IVP SCH ×2 (05:09)
[2018-03-06] MEDS: Aspirin 81 MG TAB.CHEW PO SCH (08:23)
[2018-03-06 08:40] LABS: Basophils % 0.2 %; Eosinophils % 0.2 %; Hematocrit 41.5 % (37.5-50.1); Hemoglobin 14.3 g/dL (12.9-16.9); Immature Granulocytes % 0.3 % (0-4); Immature Platelets 2.4 % (1.1-6.1); Lymphocytes # 1.4 K/mcL (0.6-4.6); Lymphocytes % 15.5 %; Mean Corpuscular HGB Conc 34.5 g/dL (31.6-35.5); Mean Corpuscular Hemoglobin 32.2 pg (28.0-33.3); Mean Corpuscular Volume 93.5 fL (83.0-100.0); Monocytes # 0.9 K/mcL (0.0-1.3); Monocytes % 9.8 %; Neutrophils # 6.9 K/mcL (1.6-8.9); Platelet Count 177 K/mcL (140-400); Red Blood Count 4.44 M/mcL (4.19-5.50); Red Cell Distribution Width 13.3 % (11.5-14.5)
[2018-03-06 08:56] LABS: Alanine Aminotransferase 23 Units/L (7-52); Albumin 3.8 g/dL (3.5-5.7); Albumin/Globulin Ratio 1.5 (1.1-2.2); Alkaline Phosphatase 64 Units/L (34-104); Aspartate Amino Transferase 83 Units/L (13-39); BUN/Creatinine Ratio 15 (6-26); Bilirubin,Total 1.8 mg/dL (0.3-1.0); Blood Urea Nitrogen 16 mg/dL (8-23); Calcium 9.2 mg/dL (8.6-10.3); Carbon Dioxide 28 mEq/L (23-29); Chloride 103 mEq/L (98-107); Globulin 2.5 g/dL (2.4-3.5); Glucose 114 mg/dL (70-105); Osmolality,Calculated 288 (280-300); Potassium 3.8 mEq/L (3.5-5.1); Sodium 138 mEq/L (136-145); Total Protein 6.3 g/dL (6.4-8.9); eGFR For Non-African Americans > 60 (> 60)
[2018-03-06] MEDS ORDERED: Loratadine 10 MG TABLET PO SCH (09:00)
[2018-03-06] MEDS ORDERED: Cholecalciferol (D-3) 1,000 UNIT TABLET PO SCH (09:00)
[2018-03-06] MEDS ORDERED: Lisinopril 20 MG TABLET PO SCH (09:00)
[2018-03-06] MEDS ORDERED: hydroCHLOROthiazide 25 MG TABLET PO SCH (09:00)
[2018-03-06] MEDS ORDERED: Aspirin 325 MG TABLET PO SCH (09:00)
--- NOTE | 2018-03-06 09:11 | Cardiology Progress Note ---
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), s/p stent x 1 2010 -pt was put on heparin drip as per protocol in the ER, nitroglycerin sublingual as needed -on home meds - Lopressor, Lipitor, ASA -troponins 2.38 ---> 4.30 ---> 15.33 -first EKG showed - LAD, first degree AV block, nonspecific ST and T wave abnormalities; second EKG is pending -type 1 NC (primary coronary event) -CXR showed cardiomegaly with mild pulmonary vascular congestion and small left pleural effusion -CT chest showed no evidence of pulmonary embolism or acute pulmonary abnormality -last ECHO (01/31/17) = LVEF = 60%, concentric LVH, s/p bioprostetic AVR, moderate TV regurgitation -ECHO (03/05/18) showed LVEF 60-65%, LVH, normal RV structure and fxn, moderate mitral stenosis, mild pHTN Plan: -Nitroglycerin SL if needed prn for chest pain -heparin d/c -pt is on metoprolol 25mg, lipitor 20mg, ASA 81mg PO everyday -increased Lipitor to 40mg today, consider d/c on higher dose -pt was brought to [facility] yesterday 03/05/[address] Bosch -pt had successful PTCA in the 1st OM -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 Attending is agreeable to sign off at this time. (2) SOB (shortness of breath) Current Visit: Yes Status: Resolved Acute on chronic exacerbation of SOB - resolved -pt has a hx of KAREN -pt cannot lay flat at night, needs pillows to help sit up -CXR - cardiomegal with mild pulmonary vascular congestion and small left pleural effusion -CT negative for PE or acute pulmonary abnormality -pt is on HCTZ 12.5 mg BID -pt benefited from Lasix 20mg IV yesterday , edema has improved and pt denies SOB at this time Plan: -continue supplemental O2 as needed, SPO2 monitoring -CPAP at night (3) HLD (hyperlipidemia) Current Visit: No Status: Chronic Pt is on Lipitor 20mg PO daily -TG - 133, cholesterol - 137, LDL 68, HDL 42 Plan -continue home lipitor ----> increasing to 40mg today as pt has many cardiac risk factors -encourage pt to follow a heart healthy low fat, low cholesterol diet Qualifiers: Hyperlipidemia type: pure hypercholesterolemia Qualified Code(s): E78.00 - Pure hypercholesterolemia, unspecified; E78.0 - Pure hypercholesterolemia (4) HTN (hypertension) Current Visit: No Status: Chronic BP today is 111/67 -poorly controlled Plan -hydralazine 10mg IVP q6hr prn SBP >160 -continue home meds -pt is on Lopressor 25mg BID, HCTZ 12.5mg PO daily Qualifiers: Hypertension type: essential hypertension Qualified Code(s): I10 - Essential (primary) hypertension (5) KAREN (obstructive sleep apnea) Current Visit: No Status: Chronic On CPAP at night. Discussion w patient/family: The assessment and plan as outlined above was discussed with the patient and/or family members who expressed understanding and agreement. All questions were answered. Thank you for involving us in the care of your patient. Please call with any questions. Subjective Principal diagnosis: NSTEMI Interval history: Pt is seen at bedside this morning. 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 -he had no complaints this morning -pt denies pain, CP, SOB, N/V/D, bleeding at the incision site -pt is hemodynamically stable at this point, BP 111/67, HR 84 Fluids - none Electrolytes - all WNL Nutrition - cardiac diet DVT prophylaxis - pt was heparinized as per protocol GI prophylaxis - not indicated Objective Vital Signs, Last 4 Hours Temp Pulse Resp BP Pulse Ox 03/06/18 06:00 98.8 F 84 16 111/67 94 03/06/18 05:17 83 General: Conversant HEENT: Atraumatic Neck: No JVD Cardiac: Reg Rate and Rhythm, Normal S1 and S2 Lungs: Normal Breath Sounds, No Wheeze, Rales, Rhonchi Neuro: Alert and responsive Abdomen: Soft, Non-Tender Skin: No rashes noted on visualized skin, Other (cath site has no hematoma, intact) Musculoskeletal: No Chest Wall Tenderness Extremities: No Edema Results 03/06/18 08:04 03/06/18 08:04 Lab Results 03/06/18 03/06/18 08:04 08:04 WBC 9.3 Hgb 14.3 Hct 41.5 Plt Count 177 Sodium 138 Potassium 3.8 Chloride 103 Carbon Dioxide 28 BUN 16 Creatinine 1.05 Glucose 114 H Calcium 9.2 Total Bilirubin 1.8 H AST 83 H ALT 23 Alkaline Phosphatase 64 Consult Discharge Plan - Plan Referrals: Faviola Lee, IMELDA [Primary Care Provider] - 03/11/18 3:00 pm Diogo Bosch [Partnered Physician] - (office will call the pstient at home) <Lyndon Sheehan - Last Filed: 03/06/18 12:33> Date of Encounter: 03/06/18 Assessment and Plan Discussion w patient/family: The assessment and plan as outlined above was discussed with the patient and/or family members who expressed understanding and agreement. All questions were answered. Thank you for involving us in the care of your patient. Please call with any questions. Objective Vital Signs, Last 4 Hours Temp Pulse Resp BP Pulse Ox 03/06/18 10:00 98.1 F 71 16 105/58 93 Results 03/06/18 08:04 03/06/18 08:04 Lab Results 03/06/18 03/06/18 08:04 08:04 WBC 9.3 Hgb 14.3 Hct 41.5 Plt Count 177 Sodium 138 Potassium 3.8 Chloride 103 Carbon Dioxide 28 BUN 16 Creatinine 1.05 Glucose 114 H Calcium 9.2 Total Bilirubin 1.8 H AST 83 H ALT 23 Alkaline Phosphatase 64
[2018-03-06 11:56] VITALS: BP 105/58
--- NOTE | 2018-03-06 15:23 | Discharge Summary ---
<Lety Horner - Last Filed: 03/06/18 15:46> Orders not resulted at time of discharge: Pending orders 03/05/18 14:17 ECG 12 lead ECG [ECG] Stat 03/06/18 07:00 ECG 12 lead ECG [ECG] Routine 03/07/18 04:00 Complete Blood Count [HEME] AM 0400 Comprehensive Metabolic Panel AM 0400 Date of Encounter: 03/06/18 Time of Encounter: 10:00 - Discharge Diagnosis (1) Non-STEMI (non-ST elevated myocardial infarction) Priority: Primary Status: Acute Assessment and Plan: Follow up with cardiology outpatient. (2) SOB (shortness of breath) Priority: Secondary Status: Chronic (3) HTN (hypertension) Priority: Secondary Status: Chronic Qualifiers: Hypertension type: essential hypertension Qualified Code(s): I10 - Essential (primary) hypertension (4) HLD (hyperlipidemia) Priority: Secondary Status: Chronic Qualifiers: Hyperlipidemia type: unspecified Qualified Code(s): E78.5 - Hyperlipidemia , unspecified (5) KAREN (obstructive sleep apnea) Priority: Secondary Status: Chronic Hospital course: Mr. Branch is a 77 year old male who presented from [place] ED on with one day history of retrosternal chest pain, shortness of breath and aspirin. He was treated in the ED with asprin and nitroglycerin which did not relieve the pain. Troponins were elevated, ekg showed LAD, first degree AV block, nonspecific ST and T wave abnormalities. CXR showed cardiomegaly with mild pulmonary vascular congestion and small left pleural effusion. CTA showed no evidence of pulmonary embolism or acute pulmonary abnormality but cardiomegaly was present. ECHO showed LVEF 60-65%, mild concentric LVH, moderate mitral stenosis, mild-moderate tricuspid regurgitation, mild pulmonic regurgitation and mild pulmonary hypertension. Cardiology was consulted and he was diagnosed with NSTEMI. JAKI score was 5 and on day two he underwent left heart cath with angioplasty. Tolerated procedure well and was clinically stable since procedure. Cardiology recommends increased dose of lipitor 40 mg per daily, plavix 75 mg daily and follow up as outpatient. - Time Spent with Patient Total time spent providing and/or coordinating discharge services: Greater than 30 minutes (40 minutes) - Discharge Medications Prescriptions: Clopidogrel [Plavix] 75 mg PO DAILY 30 Days #30 tablet Home Medications: Allopurinol [Zyloprim 100 MG] 100 mg PO BID 11/29/15 [History] Aspirin 81 mg PO DAILY 11/29/15 [History] Atorvastatin [Lipitor] 40 mg PO DAILY 11/29/15 [History] Loratadine [Allergy Relief] 10 mg PO DAILY 03/04/18 [History] Metoprolol [Lopressor] 25 mg PO BID 03/04/18 [History] Cholecalciferol (Vitamin D3) [Vitamin D3] 2,000 unit PO DAILY 03/05/18 [History] Fluticasone Propionate Nasal [Flonase] 1 spr NS DAILY PRN 03/05/18 [History] Lisinopril [Zestril] 20 mg PO DAILY 03/05/18 [History] hydroCHLOROthiazide [Hydrochlorothiazide] 25 mg PO DAILY 03/05/18 [History] Clopidogrel [Plavix] 75 mg PO DAILY 30 Days #30 tablet 03/06/18 [Rx] Allergies/Adverse Reactions: 3 Allergy/AdvReac Type Severity Reaction Status Date / Time Sulfa (Sulfonamide Allergy Severe Rash Verified 03/05/18 13:23 Antibiotics) milk AdvReac Intermediate Nausea Verified 03/05/18 13:30 Date of admission: 03/04/18 16:04 Primary care physician: Faviola Lee CNP Consults: 03/04/18 17:54 Consult to Pastoral Services [CONS] Routine Comment: 03/04/18 18:56 Consult to Trauma Surgeon [CONS] Routine Reason for SW Consult: Please assess patient for possible home needs for post -discharge planning. 03/04/18 18:58 Consult to Cardiology [CONS] Routine Comment: Consulting Provider: Cardiology Noemi Reason for Consult: Pt. is 77 yo male w/CP that began yesterday while at rest and has been constant without radiation. Patient reports stent placement in 2010 and heart valve replacement in 2011. Associated symptoms: SOB and nausea. Initial troponin 0.15. Low-dose heparin drip started. Call Completed: Yes 03/05/18 14:17 Consult to Cardiac Rehabilitation-Phase1 [CONS] Routine Comment: Reason for Consult: AMI Call Completed: Yes Consult to Nurse Navigator [CONS] Routine Comment: Discharging clinician: Lety Horner Anticipated date of discharge: 03/06/18 - Constitutional Vitals: Temp Pulse Resp BP Pulse Ox 98.1 F 71 16 105/58 93 03/06/18 10:00 03/06/18 10:00 03/06/18 10:00 03/06/18 10:00 03/06/18 10:00 General appearance: Present: cooperative, mild distress (CP), A&O X 3, pleasant , obese, answers questions appropriately - Head Head exam: Present: atraumatic, normocephalic - Eye Eye exam: Present: EOMI, normal appearance, PERRL. Absent: conjunctival injection, scleral icterus - ENT ENT exam: Present: mucous membranes moist - Neck Neck exam general surgery: Present: full ROM, supple, trachea midline. Absent: lymphadenopathy, tenderness, thyromegaly - Respiratory Respiratory exam: Present: CTAB. Absent: accessory muscle use, rales, rhonchi, wheezes - Cardiovascular Cardiovascular exam: Present: RRR, +S1, +S2. Absent: diastolic murmur, gallop, rubs, systolic murmur - Expanded Cardiovascular Exam Peripheral pulses: 2+: Radial (L), Radial (R), Dorsalis Pedis (L) PM, Dorsalis Pedis (R) PM - GI/Abdominal GI/Abdominal exam: Present: normal bowel sounds, soft. Absent: distended, firm , guarding, hepatomegaly, splenomegaly, tenderness - Extremities Exam Extremities exam: Present: full ROM, normal capillary refill, radial pulses palpable and symmetrical. Absent: calf tenderness, cyanotic - Incison Incision: Present: clean and dry, intact. Absent: draining, red, swollen - Back Exam Back exam: Absent: CVA tenderness (L), CVA tenderness (R) - Neurological Exam Neurological exam: Present: alert, CN II-XII intact, oriented X3, no focal deficits - Psychiatric Psychiatric exam: Present: normal affect, normal mood - Patient Status Disposition: Home, Self-Care Condition: Good Functional capacity at discharge: uses cane/walker (cane) Overall status at discharge: patient is progressing back to baseline - Discharge Instructions Instructions: Clopidogrel (By mouth), Chest Pain (DC), Heart Healthy Diet (DC) Follow Up With: Faviola Lee CNP [Primary Care Provider] - 03/11/18 3:00 pm Diogo Bosch [Partnered Physician] - (office will call the pstient at home) Additional Instructions: RISK FACTORS: STOP SMOKING: If you smoke, STOP. Smoking or tobacco use significantly increases your risk of heart disease because nicotine causes the arteries to narrow or constrict. It also causes fats to stick to the artery. Your chances of having a heart attack are greatly increased if you continue to smoke. For more information, call the education line for smoking cessation 4-703-GWAAGBT EAT A LOW FAT/CHOLESTEROL/SODIUM DIET: This diet may help reduce your chances of having a heart attack. LIFTING: Avoid lifting anything more than 10 pounds for 5-7 days Prior to straining, laughing, sneezing and/or coughing, apply manual pressure directly over insertion site. ACTIVITY: You may walk or climb stairs as tolerated You can resume sexual activity as tolerated In general, you are encouraged to engage in a minimum of 30 minutes or more of moderate intensity physical activity, such as brisk walking, daily or at least 3 -4 times weekly BATHING Do not submerge the site into water (bath tub, hot tub, swimming pool) for 1 week. This can be a source for infection into the blood stream. You may shower after 24 hours SITE CARE: After 24 hours, you may remove the dressing and leave the site open to air. Keep the site clean and dry. Clean gently and pat dry. You can expect bruising and tenderness that gradually resolve within a week or two. Return to work as instructed per your physician Resume driving as instructed per physician Keep all scheduled follow up appointments Resume medications as instructed IMPORTANT: If prescribed a Platelet Aggregation Inhibitor such as, Plavix, Brilinta or Effient: Duration of therapy is minimum one year These medications are often used in combination with Aspirin in prevention of future heart attacks Never discontinue unless consult with your Accreditation Specialist STROKE (CVA) Risk factors for a stroke are: Age, cigarette smoking, diabetes, excessive alcohol consumption, family history, high blood pressure, overweight, physical inactivity, prior stroke, heart attack, diagnosis of carotid artery stenosis or other artery disease. Warning signs: Sudden numbness or weakness of the face, arm or leg; especially on one side of the body, sudden confusion, trouble speaking or understanding, sudden trouble seeing in one or both eyes, sudden trouble walking, dizziness, loss of balance or coordination, sudden severe headache with no cause. Call 911 or go to the Emergency Room. CONGESTIVE HEART FAILURE: If you have been diagnosed with Congestive Heart Failure (CHF) and your symptoms return, make an appointment with your physician Weigh yourself daily. Notify your physician if you have a weight gain of two or more pounds in one day or five or more pounds in one week. If you experience any difficulty breathing, please call 911 BLEEDING: Although the risk of bleeding is minimal, it can happen. If you have any bleeding from the site, apply firm pressure above the puncture site for 10-15 minutes. If the bleeding does not stop, continue manual pressure and call 911 Contact your physician if: You develop a fever greater than 101 degrees Fahrenheit Your site becomes reddened or has any drainage You have an increase in pain or burning at the site or if a large knot forms at the site. If you experience chest pain, shortness of breath, dizziness, or extreme tiredness, stop the activity and rest. Please notify your physicians office if you experience any of these symptoms and they are not relieved by rest please call 911! - Diet and Activity Activity: increase activity as tolerated Diet: low salt diet <Hollie Zurita - Last Filed: 03/06/18 16:29> Orders not resulted at time of discharge: Pending orders 03/05/18 14:17 ECG 12 lead ECG [ECG] Stat 03/06/18 07:00 ECG 12 lead ECG [ECG] Routine Date of Encounter: 03/06/18 - Discharge Diagnosis (1) Non-STEMI (non-ST elevated myocardial infarction) Priority: Primary Status: Acute (2) HLD (hyperlipidemia) Status: Chronic Qualifiers: Hyperlipidemia type: unspecified Qualified Code(s): E78.5 - Hyperlipidemia , unspecified (3) HTN (hypertension) Status: Chronic Qualifiers: Hypertension type: essential hypertension Qualified Code(s): I10 - Essential (primary) hypertension (4) KAREN (obstructive sleep apnea) Status: Chronic Hospital course: Mr. Branch is a 77 year old male - Time Spent with Patient Total time spent providing and/or coordinating discharge services: Date of admission: 03/04/18 16:04 Primary care physician: Faviola Lee CNP Consults: 03/04/18 17:54 Consult to Pastoral Services [CONS] Routine Comment: 03/04/18 18:56 Consult to Trauma Surgeon [CONS] Routine Reason for SW Consult: Please assess patient for possible home needs for post -discharge planning. 03/04/18 18:58 Consult to Cardiology [CONS] Routine Comment: Consulting Provider: Cardiology Noemi Reason for Consult: Pt. is 77 yo male w/CP that began yesterday while at rest and has been constant without radiation. Patient reports stent placement in 2010 and heart valve replacement in 2011. Associated symptoms: SOB and nausea. Initial troponin 0.15. Low-dose heparin drip started. Call Completed: Yes 03/05/18 14:17 Consult to Cardiac Rehabilitation-Phase1 [CONS] Routine Comment: Reason for Consult: AMI Call Completed: Yes Consult to Nurse Navigator [CONS] Routine Comment: - Constitutional Vitals: Temp Pulse Resp BP Pulse Ox 98.1 F 71 16 105/58 93 03/06/18 10:00 03/06/18 10:00 03/06/18 10:00 03/06/18 10:00 03/06/18 10:00 - Attending Attestation I examined this patient and my medical decision-making was reviewed with the Resident Physician. I agree with the documented findings, disposition and treatment plan as described except to the extent set forth below.
== END 2018-03-06 16:26 | disposition home or self-care (01) ==
LOC: 2NENU → 2NNU 03-05 14:26
PROVIDERS: ADMIT Hospitalist; ATTEND Hospitalist

== ENCOUNTER 2018-04-14 15:24 | Observation (INO) ==
[2018-04-14] MEDS ORDERED: Aspirin 81 MG TAB.CHEW PO ONE (15:49)
--- NOTE | 2018-04-14 15:54 | Emergency Department Note ---
Disposition Clinical Impression: AMY (acute kidney injury) Dyspnea Qualifiers: Dyspnea type: unspecified Qualified Code(s): R06.00 - Dyspnea, unspecified Disposition: Admitted As Inpatient Referrals: Faviola Lee CNP [Primary Care Provider] - Forms: ED Satisfaction Letter, Work/School Release General Adult HPI - General Chief complaint: ED General Medical Stated complaint: "low bp sent from cardio rehab" Time Seen by Provider: 04/14/18 15:38 Source: patient Mode of arrival: ambulatory Limitations: no limitations Nursing Notes Reviewed: Yes Vital Signs Reviewed: Yes - History of Present Illness HPI Narrative: 77-year-old male with a history of hypertension, CAD, valve replacement in the past on Plavix presents for evaluation of low blood pressure. Patient was sent over from cardiac rehabilitation. Patient states that he had an angioplasty approximately 3 weeks ago. Patient states that today he felt lightheaded and generally weak. Patient also notes dyspnea most with exertion. Patient describes difficulty putting his pants on. Patient also describes difficulty ambulating and is felt short of breath. Denies any trauma or falls. Patient typically ambulatory assistance of a cane. Patient denies any abdominal pain. Patient denies any nausea vomiting diaphoresis. No chest pain. No fevers or cough. Denies any sniffing or weight gain. Reports some mild lower leg edema. Pain Scale: 0 - Related Data Home Medications Medication Instructions Recorded Confirmed Allopurinol [Zyloprim 100 MG] 100 mg PO BID 11/29/15 04/14/18 Atorvastatin [Lipitor] 40 mg PO DAILY 11/29/15 04/14/18 Loratadine [Allergy Relief] 10 mg PO DAILY 03/04/18 04/14/18 Metoprolol [Lopressor] 25 mg PO BID 03/04/18 04/14/18 Cholecalciferol (Vitamin D3) 4,000 unit PO DAILY 03/05/18 04/14/18 [Vitamin D3] Fluticasone Propionate Nasal 1 spr NS DAILY PRN 03/05/18 04/14/18 [Flonase] hydroCHLOROthiazide 25 mg PO DAILY 03/05/18 04/14/18 [Hydrochlorothiazide] Nitroglycerin [Nitrostat] 0.4 mg SL PRN PRN 04/01/18 04/14/18 Previous Rx's Medication Instructions Recorded Clopidogrel [Plavix] 75 mg PO DAILY 30 Days #30 tablet 03/06/18 Allergies Allergy/AdvReac Type Severity Reaction Status Date / Time Sulfa (Sulfonamide Allergy Severe Rash Verified 04/14/18 15:33 Antibiotics) milk AdvReac Intermediate Nausea Verified 04/14/18 15:33 All systems ED: reviewed and negative except as stated. Constitutional: Denies: fever Cardiovascular: Denies: chest pain Respiratory: Reports: dyspnea. Denies: cough Gastrointestinal: Denies: abdominal pain, nausea, vomiting Past Medical History - Past Medical History Source: patient Medical history: Reports: arthritis, cancer, coronary artery disease, GERD, hyperlipidemia, hypertension, kidney stones, myocardial infarction, osteoporosis , peripheral artery disease, renal disease, TIA, valvular heart disease Surgical history: Reports: angioplasty/stent (x1 in 2010), appendectomy, cancer surgery, cataract, coronary bypass (CABG), heart valve replacement (Porcine valve in 2011), prostatectomy, tonsilectomy, vasectomy Psychiatric history: Reports: no psych history - Social History Smoking Status: Former smoker Smokeless Tobacco Status: No Alcohol use: Reports: heavy, recent Drug use: Reports: none Physical Exam - General Limitations: no limitations General appearance: alert, in no apparent distress - Head Head exam: atraumatic, normocephalic, normal inspection - Eye Eye exam: Present: normal appearance, PERRL, EOMI - ENT ENT exam: normal exam - Neck Neck exam: Present: normal inspection - Chest Chest inspection: Present: normal inspection, symmetric chest wall rise - Respiratory Respiratory exam: Present: other. Absent: respiratory distress, accessory muscle use - Cardiovascular Cardiovascular exam: Present: regular rate - Abdominal Exam Abdominal exam: Present: soft, Non-Tender. Absent: guarding, rebound - Extremities Exam Extremities exam: Present: normal inspection, pedal edema (trace) - Expanded Lower Extremity Exam Neurovascular/Tendon exam: Present: normal capillary refill - Back Exam Back exam: Present: normal inspection - Neurological Exam Neurological exam: Present: alert, oriented X3, CN II-XII intact - Skin Skin exam: Present: warm, dry, intact, normal color Course Course Narrative: Patient seen and examined. Initial triage blood pressure was 91/60. Repeat blood pressure showed a systolic of 108. Patient's mentating appropriately. Patient will get basic cardiopulmonary screening evaluation with EKG chest x- ray troponin. Concerns of heart failure. Denying chest pain currently. Patient will get a screening lactate given the low blood pressure. - Reevaluation(s) Reevaluation #1: Patient seen and examined. Patient's resting comfortably. Satting 90%. Patient blood pressure is soft. Patient was discussed on lab results to date. Awaiting urinalysis. Time: 17:01 Vital Signs Temperature 98.0 F 04/14/18 15:33 Pulse Rate 67 04/14/18 15:33 Respiratory Rate 18 04/14/18 15:33 Blood Pressure 91/60 04/14/18 15:33 O2 Sat by Pulse Oximetry 95 04/14/18 15:33 Temperature 98.0 F 04/14/18 15:40 Pulse Rate 68 04/14/18 15:40 Respiratory Rate 18 04/14/18 15:40 Blood Pressure 108/63 04/14/18 15:40 O2 Sat by Pulse Oximetry 97 04/14/18 15:40 Oxygen Delivery Oxygen Delivery Room Air Medical Decision Making - MDM Narrative Medical decision making narrative: Patient presented for concerns of dyspnea, generalized weakness as well as a low blood pressure. Patient has no significant change in blood pressure management at home. Took his blood pressure medication as directed prior to arrival. At cardiac rehabilitation the patient blood pressure as noted below. Patient arrived to the ED with soft blood pressures. Patient workup included cardiopulmonary screening evaluation with chest x-ray which showed mild pulmonary congestion as well as an elevated lactate. Given the elevated lactate 2.4 and lower blood pressures patient did receive a 500 mL fluid bolus. Patient oxygen saturation is unremarkable. Do not believe this is a pulmonary embolism cause of hypotension. She did have one episode of nonbloody diarrhea however does not have any abdominal pain. Patient is likely slightly volume down and will improve with IV fluid. Will likely need admission for observation and gradual fluid titration to ensure kidney function resolves. - Medical Records Medical records reviewed: Yes I reviewed the patient's medical records. Recent [facility] 03/2018 pt had successful PTCA in the 1st OM -there was severe two vessel CAD -Left MCA free of disease, LAD free of dz -60% stenosis in the distal circumflex -90% stenosis in the 1st marginal, lesion has JAKI flow of 2, intervention performed and final stenosis is 30% -RCA 60% stenosis in the middle region, mid RCA has patent stens from previous procedure. Impressions: LVEF 60-65%. Mild concentric left ventricular hypertrophy. Indeterminate diastolic function. Normal right ventricular structure and function. Prosthetic aortic valve not well visualized. Normal function by Doppler. No significant regurgitation. Moderate mitral stenosis, MG 5 mmHg at 77 bpm. Mild-moderate tricuspid regurgitation. Mild pulmonic regurgitation. Mild pulmonary hypertension. - Lab Data Result diagrams: 04/14/18 16:10 04/14/18 16:10 Lab Results 04/14/18 04/14/18 04/14/18 Range/Units 16:10 16:10 16:10 WBC (4.3-11.1) K/mcL RBC (4.19-5.50) M/mcL Hgb (12.9-16.9) g/dL Hct (37.5-50.1) % MCV (83.0-100.0) fL MCH (28.0-33.3) pg MCHC (31.6-35.5) g/dL RDW (11.5-14.5) % Plt Count (140-400) K/mcL MPV (9.4-12.4) fL Immature Gran % (0-4) % Seg Neutrophils % % Lymphocytes % % Monocytes % % Eosinophils % % Basophils % % Neutrophils # (1.6-8.9) K/mcL Lymphocytes # (0.6-4.6) K/mcL Monocytes # (0.0-1.3) K/mcL Eosinophils # (0.0-0.6) K/mcL Basophils # (0.0-0.2) K/mcL Immature Plt Fraction (1.1-6.1) % PT 11.2 (9.4-12.1) Seconds INR 1.0 Sodium (136-145) mEq/L Potassium (3.5-5.1) mEq/L Chloride (98-107) mEq/L Carbon Dioxide (23-29) mEq/L BUN (8-23) mg/dL Creatinine (0.70-1.30) mg/dL Est GFR ( Amer) (> 60) Est GFR (Non-Af Amer) (> 60) BUN/Creatinine Ratio (6-26) Glucose (70-105) mg/dL Calculated Osmolality (280-300) Lactic Acid 2.4 H (0.5-2.2) mmol/L Calcium (8.6-10.3) mg/dL Troponin I (< 0.04) ng/mL B-Natriuretic Peptide 106 H (Less than 100) pg/mL 04/14/18 04/14/18 Range/Units 16:10 16:10 WBC 10.6 (4.3-11.1) K/mcL RBC 4.16 L (4.19-5.50) M/mcL Hgb 13.5 (12.9-16.9) g/dL Hct 39.9 (37.5-50.1) % MCV 95.9 (83.0-100.0) fL MCH 32.5 (28.0-33.3) pg MCHC 33.8 (31.6-35.5) g/dL RDW 13.4 (11.5-14.5) % Plt Count 209 (140-400) K/mcL MPV 10.0 (9.4-12.4) fL Immature Gran % 0.4 (0-4) % Seg Neutrophils % 83.2 % Lymphocytes % 10.0 % Monocytes % 6.0 % Eosinophils % 0.2 % Basophils % 0.2 % Neutrophils # 8.9 (1.6-8.9) K/mcL Lymphocytes # 1.1 (0.6-4.6) K/mcL Monocytes # 0.6 (0.0-1.3) K/mcL Eosinophils # 0.0 (0.0-0.6) K/mcL Basophils # 0.0 (0.0-0.2) K/mcL Immature Plt Fraction 3.3 (1.1-6.1) % PT (9.4-12.1) Seconds INR Sodium 141 (136-145) mEq/L Potassium 4.2 (3.5-5.1) mEq/L Chloride 105 (98-107) mEq/L Carbon Dioxide 27 (23-29) mEq/L BUN 20 (8-23) mg/dL Creatinine 1.57 H (0.70-1.30) mg/dL Est GFR ( Amer) 52 L (> 60) Est GFR (Non-Af Amer) 43 L (> 60) BUN/Creatinine Ratio 13 (6-26) Glucose 116 H (70-105) mg/dL Calculated Osmolality 296 (280-300) Lactic Acid (0.5-2.2) mmol/L Calcium 9.6 (8.6-10.3) mg/dL Troponin I 0.03 (< 0.04) ng/mL B-Natriuretic Peptide (Less than 100) pg/mL - Radiology Data Radiology results reviewed: Yes I reviewed the patient's radiology results. Chest X-Ray 04/14/18 15:49 IMPRESSION: 1. Mild pulmonary vascular congestion. D/ / Jose Pedro MD / Jose Pedro MD Interpreting Provider: Jose Pedro MD - EKG Data EKG #1 EKG attestation: Yes I reviewed and interpreted this EKG. EKG shows normal: sinus rhythm Rate: normal Rhythm: NSR [place]/QRS: left axis deviation T wave inversions noted in: v1 (fattened) Interpretation: no acute changes, nonspecific ST-T wave changes S.B.A.R. - S.B.A.RMallory Situation: Demographics Background: Presenting Complaint Assessment: Vital Signs, Course and respsone to treatment, Patient/Family Expectation Recommendation: Barrier(s) to disposition, Recommendation based on pending studies, treatments, or consults S.B.A.RMallory Report Given to: Dr. Sushila Valle Repor Time: 17:46
[2018-04-14 16:39] LABS: Basophils % 0.2 %; Red Blood Count 4.16 M/mcL (4.19-5.50)
[2018-04-14 16:50] LABS: Eosinophils % 0.2 %; Hematocrit 39.9 % (37.5-50.1); Hemoglobin 13.5 g/dL (12.9-16.9); Immature Granulocytes % 0.4 % (0-4); Immature Platelets 3.3 % (1.1-6.1); Lymphocytes # 1.1 K/mcL (0.6-4.6); Mean Corpuscular HGB Conc 33.8 g/dL (31.6-35.5); Mean Corpuscular Hemoglobin 32.5 pg (28.0-33.3); Mean Corpuscular Volume 95.9 fL (83.0-100.0); Monocytes # 0.6 K/mcL (0.0-1.3); Neutrophils # 8.9 K/mcL (1.6-8.9); Platelet Count 209 K/mcL (140-400); Red Cell Distribution Width 13.4 % (11.5-14.5); Segmented Neutrophils % 83.2 %
[2018-04-14 16:58] LABS: Calcium 9.6 mg/dL (8.6-10.3); Potassium 4.2 mEq/L (3.5-5.1); Troponin I 0.03 ng/mL (< 0.04)
[2018-04-14 17:02] LABS: Prothrombin Time 11.2 Seconds (9.4-12.1)
[2018-04-14] MEDS ORDERED: 0.9 % Sodium Chloride 500 ML IVC ONE (17:21)
--- NOTE | 2018-04-14 17:53 | Emergency Department Note ---
Disposition Clinical Impression: AMY (acute kidney injury) Dyspnea Qualifiers: Dyspnea type: unspecified Qualified Code(s): R06.00 - Dyspnea, unspecified Disposition: Admitted As Inpatient Referrals: Faviola Lee CNP [Primary Care Provider] - Forms: ED Satisfaction Letter, Work/School Release General Adult HPI - General Chief complaint: ED General Medical Stated complaint: "low bp sent from cardio rehab" Time Seen by Provider: 04/14/18 15:38 Source: patient Mode of arrival: ambulatory Limitations: no limitations - History of Present Illness Pain Scale: 0 - Related Data Home Medications Medication Instructions Recorded Confirmed Allopurinol [Zyloprim 100 MG] 100 mg PO BID 11/29/15 04/14/18 Atorvastatin [Lipitor] 40 mg PO DAILY 11/29/15 04/14/18 Loratadine [Allergy Relief] 10 mg PO DAILY 03/04/18 04/14/18 Metoprolol [Lopressor] 25 mg PO BID 03/04/18 04/14/18 Cholecalciferol (Vitamin D3) 4,000 unit PO DAILY 03/05/18 04/14/18 [Vitamin D3] Fluticasone Propionate Nasal 1 spr NS DAILY PRN 03/05/18 04/14/18 [Flonase] hydroCHLOROthiazide 25 mg PO DAILY 03/05/18 04/14/18 [Hydrochlorothiazide] Nitroglycerin [Nitrostat] 0.4 mg SL PRN PRN 04/01/18 04/14/18 Previous Rx's Medication Instructions Recorded Clopidogrel [Plavix] 75 mg PO DAILY 30 Days #30 tablet 03/06/18 Allergies Allergy/AdvReac Type Severity Reaction Status Date / Time Sulfa (Sulfonamide Allergy Severe Rash Verified 04/14/18 15:33 Antibiotics) milk AdvReac Intermediate Nausea Verified 04/14/18 15:33 Constitutional: Denies: fever Cardiovascular: Denies: chest pain Respiratory: Reports: dyspnea. Denies: cough Gastrointestinal: Denies: abdominal pain, nausea, vomiting Past Medical History - Past Medical History Medical history: Reports: arthritis, cancer, coronary artery disease, GERD, hyperlipidemia, hypertension, kidney stones, myocardial infarction, osteoporosis , peripheral artery disease, renal disease, TIA, valvular heart disease Surgical history: Reports: angioplasty/stent (x1 in 2010), appendectomy, cancer surgery, cataract, coronary bypass (CABG), heart valve replacement (Porcine valve in 2011), prostatectomy, tonsilectomy, vasectomy Psychiatric history: Reports: no psych history - Social History Smoking Status: Former smoker Smokeless Tobacco Status: No Alcohol use: Reports: heavy, recent Drug use: Reports: none Physical Exam - General Limitations: no limitations General appearance: alert, in no apparent distress Course Vital Signs Temperature 98.0 F 04/14/18 15:33 Pulse Rate 67 04/14/18 15:33 Respiratory Rate 18 04/14/18 15:33 Blood Pressure 91/60 04/14/18 15:33 O2 Sat by Pulse Oximetry 95 04/14/18 15:33 Temperature 98.0 F 04/14/18 15:40 Pulse Rate 68 04/14/18 15:40 Respiratory Rate 18 04/14/18 15:40 Blood Pressure 108/63 04/14/18 15:40 O2 Sat by Pulse Oximetry 97 04/14/18 15:40 Oxygen Delivery Oxygen Delivery Room Air Medical Decision Making - Lab Data Result diagrams: 04/14/18 16:10 04/14/18 16:10 Lab Results 04/14/18 04/14/18 04/14/18 Range/Units 16:10 16:10 16:10 WBC (4.3-11.1) K/mcL RBC (4.19-5.50) M/mcL Hgb (12.9-16.9) g/dL Hct (37.5-50.1) % MCV (83.0-100.0) fL MCH (28.0-33.3) pg MCHC (31.6-35.5) g/dL RDW (11.5-14.5) % Plt Count (140-400) K/mcL MPV (9.4-12.4) fL Immature Gran % (0-4) % Seg Neutrophils % % Lymphocytes % % Monocytes % % Eosinophils % % Basophils % % Neutrophils # (1.6-8.9) K/mcL Lymphocytes # (0.6-4.6) K/mcL Monocytes # (0.0-1.3) K/mcL Eosinophils # (0.0-0.6) K/mcL Basophils # (0.0-0.2) K/mcL Immature Plt Fraction (1.1-6.1) % PT 11.2 (9.4-12.1) Seconds INR 1.0 Sodium (136-145) mEq/L Potassium (3.5-5.1) mEq/L Chloride (98-107) mEq/L Carbon Dioxide (23-29) mEq/L BUN (8-23) mg/dL Creatinine (0.70-1.30) mg/dL Est GFR ( Amer) (> 60) Est GFR (Non-Af Amer) (> 60) BUN/Creatinine Ratio (6-26) Glucose (70-105) mg/dL Calculated Osmolality (280-300) Lactic Acid 2.4 H (0.5-2.2) mmol/L Calcium (8.6-10.3) mg/dL Troponin I (< 0.04) ng/mL B-Natriuretic Peptide 106 H (Less than 100) pg/mL 04/14/18 04/14/18 Range/Units 16:10 16:10 WBC 10.6 (4.3-11.1) K/mcL RBC 4.16 L (4.19-5.50) M/mcL Hgb 13.5 (12.9-16.9) g/dL Hct 39.9 (37.5-50.1) % MCV 95.9 (83.0-100.0) fL MCH 32.5 (28.0-33.3) pg MCHC 33.8 (31.6-35.5) g/dL RDW 13.4 (11.5-14.5) % Plt Count 209 (140-400) K/mcL MPV 10.0 (9.4-12.4) fL Immature Gran % 0.4 (0-4) % Seg Neutrophils % 83.2 % Lymphocytes % 10.0 % Monocytes % 6.0 % Eosinophils % 0.2 % Basophils % 0.2 % Neutrophils # 8.9 (1.6-8.9) K/mcL Lymphocytes # 1.1 (0.6-4.6) K/mcL Monocytes # 0.6 (0.0-1.3) K/mcL Eosinophils # 0.0 (0.0-0.6) K/mcL Basophils # 0.0 (0.0-0.2) K/mcL Immature Plt Fraction 3.3 (1.1-6.1) % PT (9.4-12.1) Seconds INR Sodium 141 (136-145) mEq/L Potassium 4.2 (3.5-5.1) mEq/L Chloride 105 (98-107) mEq/L Carbon Dioxide 27 (23-29) mEq/L BUN 20 (8-23) mg/dL Creatinine 1.57 H (0.70-1.30) mg/dL Est GFR ( Amer) 52 L (> 60) Est GFR (Non-Af Amer) 43 L (> 60) BUN/Creatinine Ratio 13 (6-26) Glucose 116 H (70-105) mg/dL Calculated Osmolality 296 (280-300) Lactic Acid (0.5-2.2) mmol/L Calcium 9.6 (8.6-10.3) mg/dL Troponin I 0.03 (< 0.04) ng/mL B-Natriuretic Peptide (Less than 100) pg/mL Attestation Statement - Attestation Attestation: I examined this patient and my medical decision-making was reviewed with the Resident Physician. I agree with the documented findings, disposition and treatment plan as described except to the extent set forth below. 77 year old male presents to the ED with complaints with complaints of low BP and states that he has a history of CHF and is currently on lasix therpay and states that he feels dry and has been drinking water to compensate. He has an original BP of 91/60, and his BNP is 106. WE believe he may be over diuresed and may benefit from some IVF and monitoring of his kidney sfunction as he has AMY and a new lactic acidosis of 2.4. We will admit to medicine.
[2018-04-15] MEDS ORDERED: Naloxone 0.4 MG/ML INJ IVP PRN (01:13)
[2018-04-15] MEDS ORDERED: 0.9 % Sodium Chloride 1,000 ML IVC ONE (01:14)
--- NOTE | 2018-04-15 01:18 | Internal Med History&Physical ---
Date of Encounter: 04/15/18 Time of Encounter: 00:20 Internal Medicine - H&P: HPI Chief complaint: AMY, weakness Admitted From: Emergency Dept Plans for Post Hospital Care: Home History of present illness: Mr. Branch is a 77 year old male Patient presented to the ER after feeling weak and light headed at his cardiac rehab appointment. He is status post angioplasty 3 weeks ago, and before arriving to his appointment he had trouble walking, got tunnel vision and his blood pressure was low. He denies falling. In the ER his chest x-ray showed pulmonary vascular congestion, elevated lactate, and he had a slight AMY. He denies history of CHF in the past, as well as nausea, vomiting, chest pain, abdominal pain, fever and chills. He has had shortness of breath with exertion. Upon my assessment, patient is resting comfortably in the bed. He has no complaints at this time. Past Med Surg Social Fam HX - Past Medical History Medical history: arthritis, cancer, coronary artery disease, GERD, hyperlipidemia, hypertension, kidney stones, myocardial infarction, osteoporosis , peripheral artery disease, renal disease, TIA, valvular heart disease Additional medical history: skin/prostate cancer Psychiatric history: no psych history - Past Surgical History Surgical History: angioplasty/stent, appendectomy, cancer surgery, cataract, coronary bypass (CABG), heart valve replacement, prostatectomy, tonsilectomy, vasectomy - Social History Smoking Status: Former smoker Smokeless Tobacco Status: No Alcohol use: occasionally Drug use: none - Family History Father Family Member Ethnicity: Non- Living Status: Hx Family Neuromuscular Disorders: Yes (Essential tremors) Mother Family Member Ethnicity: Non- Living Status: Hx Family Cardiac Disorders: Yes (father,sister) Hx Family Respiratory Disorders: No Hx Family Cancer: Yes (lung) Hx Family GI Disorders: No Hx Family Endocrine Disorder: No Hx Family Neuromuscular Disorders: Yes (TIAs) Hx Family Neurologic Disorders: Yes (mother) Hx Family HEENT Disorders: No Hx Family Autoimmune Disorders: No Sister Family Member Ethnicity: Non- Living Status: Still Living Hx Family Cardiac Disorders: Yes Grandfather Family Member Ethnicity: Non- Living Status: Hx Family Cardiac Disorders: Yes (CVA) Hx Family Neurologic Disorders: Yes (CVA) Grandmother Family Member Ethnicity: Non- Living Status: Internal Medicine - H&P: Meds Allopurinol [Zyloprim 100 MG] 100 mg PO BID 11/29/15 [History] Atorvastatin [Lipitor] 40 mg PO DAILY 11/29/15 [History] Loratadine [Allergy Relief] 10 mg PO DAILY 03/04/18 [History] Metoprolol [Lopressor] 25 mg PO BID 03/04/18 [History] Cholecalciferol (Vitamin D3) [Vitamin D3] 4,000 unit PO DAILY 03/05/18 [History] Fluticasone Propionate Nasal [Flonase] 1 spr NS DAILY PRN 03/05/18 [History] hydroCHLOROthiazide [Hydrochlorothiazide] 25 mg PO DAILY 03/05/18 [History] Clopidogrel [Plavix] 75 mg PO DAILY 30 Days #30 tablet 03/06/18 [Rx] Nitroglycerin [Nitrostat] 0.4 mg SL PRN PRN 04/01/18 [History] 3 Allergy/AdvReac Type Severity Reaction Status Date / Time Sulfa (Sulfonamide Allergy Severe Rash Verified 04/14/18 15:33 Antibiotics) milk AdvReac Intermediate Nausea Verified 04/14/18 15:33 All Systems PM: A 10-system review of systems was performed and is negative for pertinent findings except as documented above in the HPI. - Constitutional Vitals: Temp Pulse Resp BP Pulse Ox 98.0 F 78 16 109/67 95 04/14/18 21:13 04/14/18 21:13 04/14/18 21:13 04/14/18 21:13 04/14/18 21:13 General appearance: Present: cooperative, A&O X 3, pleasant, no acute distress, answers questions appropriately Exam: as above - Eye Eye exam: Present: EOMI, normal appearance - Respiratory Respiratory exam: Present: CTAB. Absent: chest wall tenderness, rhonchi, wheezes - Cardiovascular Cardiovascular exam: Present: RRR, systolic murmur. Absent: diastolic murmur - GI/Abdominal GI/Abdominal exam: Present: normal bowel sounds, soft. Absent: tenderness - Extremities Exam Extremities exam: Present: warm, radial pulses palpable and symmetrical. Absent : calf tenderness, pedal edema, tenderness - Neurological Exam Neurological exam: Present: no focal deficits, strengths equal and symetr throughout. Absent: motor sensory deficit, facial droop, speech deficit - Skin Skin exam: Present: dry, normal color, warm Internal Med - H&P Results - Labs CBC & Chem 7: 04/15/18 04:34 04/15/18 04:34 - Assessment and plan (1) AMY (acute kidney injury) Current Visit: Yes Status: Acute Assessment and plan: Likely secondary to dehydration. Continue IV fluids Recheck labs in the morning. (2) Weakness Current Visit: Yes Status: Acute Assessment and plan: Could be related to dehydration, patient also takes HCTZ and metoprolol, which could contribute to his symptoms. Hold blood pressure medications. Continue to monitor. (3) Dyspnea Current Visit: Yes Status: Acute Assessment and plan: Patient does not clinical seem to have symptoms of CHF, though does have elevated BNP. Likely component of KAREN. Chest x-ray showed pulmonary vascular congestion. Uses BiPAP at night Oxygen via nasal cannula as needed. Bipap at night Continue to monitor Qualifiers: Dyspnea type: unspecified Qualified Code(s): R06.00 - Dyspnea, unspecified (4) KAREN (obstructive sleep apnea) Current Visit: No Status: Chronic Assessment and plan: BiPAP at night (5) Elevated lactic acid level Current Visit: Yes Status: Acute Assessment and plan: Patient not septic. IV fluid hydration Recheck in AM. (6) DVT prophylaxis Current Visit: No Status: Acute Assessment and plan: SCDs - Time Spent With Patient Total time spent is greater than 50% in coordination of care (as documented) at patient's floor/unit and/or counseling patient: 25 - 35 minutes
[2018-04-15 01:29] LABS: Bilirubin,Urine Negative (Negative); Blood,Urine Negative (Negative); Clarity,Urine Clear (Clear); Color,Urine Yellow (Yellow); Glucose,Urine (UA) Normal (Normal); Ketones,Urine Negative (Negative); Leukocyte Esterase,Urine Negative (Negative); Nitrite,Urine Negative (Negative); PH,Urine 5.5 pH Units (5.0-8.0); Protein,Urine Negative (Neg-Trace); Specific Gravity,Urine 1.018 (1.010-1.025); Urobilinogen,Urine Normal (Normal)
[2018-04-15 05:14] LABS: Hematocrit 36.9 % (37.5-50.1); Hemoglobin 12.2 g/dL (12.9-16.9); Mean Corpuscular HGB Conc 33.1 g/dL (31.6-35.5); Mean Corpuscular Hemoglobin 31.3 pg (28.0-33.3); Mean Corpuscular Volume 94.6 fL (83.0-100.0); Mean Platelet Volume 9.8 fL (9.4-12.4); Platelet Count 176 K/mcL (140-400); Red Cell Distribution Width 13.5 % (11.5-14.5)
[2018-04-15 05:36] LABS: BUN/Creatinine Ratio 16 (6-26); Blood Urea Nitrogen 20 mg/dL (8-23); Calcium 8.7 mg/dL (8.6-10.3); Carbon Dioxide 26 mEq/L (23-29); Chloride 106 mEq/L (98-107); Glucose 107 mg/dL (70-105); Osmolality,Calculated 293 (280-300); Potassium 3.5 mEq/L (3.5-5.1); Sodium 140 mEq/L (136-145); eGFR For Non-African Americans 56 (> 60)
[2018-04-15] MEDS ORDERED: Fluticasone Propionate Nasal 50 MCG/SPRAY BOTTLE NS PRN (08:41)
[2018-04-15] MEDS ORDERED: Nitroglycerin 0.4 MG TAB.SUBL SL PRN (08:41)
[2018-04-15] MEDS ORDERED: Aspirin Enteric Coated 81 MG Tablet PO SCH (09:00)
[2018-04-15] MEDS: Loratadine 10 MG TABLET PO SCH (10:33)
[2018-04-15] MEDS: Cholecalciferol (D-3) 1,000 UNIT TABLET PO SCH (10:33)
--- NOTE | 2018-04-15 16:05 | Event Note ---
Date of Encounter: 04/15/18 Time of Encounter: 12:00 Patient with a recent history of coronary angioplasty was admitted for generalized weakness in the setting of hypotension and AMY. Likely due to poor oral intake plus ongoing usage of hydrochlorothiazide. Lactate was also mildly elevated on presentation. Both creatinine and lactic acid have improved after IV fluid. Blood pressure also normalized. We will continue to hold off on hydrochlorothiazide and resume the other anti-HTN meds. PT/OT evaluation for ambulation.
[2018-04-16 05:19] LABS: BUN/Creatinine Ratio 15 (6-26); Blood Urea Nitrogen 17 mg/dL (8-23); Carbon Dioxide 29 mEq/L (23-29); Chloride 106 mEq/L (98-107); Glucose 103 mg/dL (70-105); Osmolality,Calculated 294 (280-300); Potassium 3.6 mEq/L (3.5-5.1); Sodium 141 mEq/L (136-145); eGFR For Non-African Americans > 60 (> 60)
[2018-04-16] MEDS: Loratadine 10 MG TABLET PO SCH (08:16)
[2018-04-16] MEDS: Cholecalciferol (D-3) 1,000 UNIT TABLET PO SCH (08:16)
--- NOTE | 2018-04-16 08:24 | Discharge Summary ---
- NOTES TO OUTPATIENT PROVIDER Notes to Outpatient Provider: Patient was admitted for AMY secondary to poor oral intake and ongoing use of HCTZ. Improved with IV fluids and discontinuation of hydrochlorothiazide. Instead, Norvasc 5 mg daily was started for hypertension. Follow-up with PCP for further titration.. Follow up with PCP for further titration. Date of Encounter: 04/16/18 Time of Encounter: 08:00 - Discharge Diagnosis (1) AMY (acute kidney injury) Priority: Primary Status: Acute (2) Elevated lactic acid level Priority: Secondary Status: Acute (3) Weakness Priority: Secondary Status: Acute (4) HTN (hypertension) Priority: Secondary Status: Chronic Qualifiers: Hypertension type: essential hypertension Qualified Code(s): I10 - Essential (primary) hypertension Hospital course: Mr. Branch is a 77 year old male with recent coronary angioplasty presented to the ED with lightheadedness. He was admitted for hypotension and AMY in the setting of poor oral intake and ongoing HCTZ use. Lactic acid also elevated at 2.5. Both Cr and lactic acid normalized with IVF and discontinuation of HCTZ. Instead, amlodipine 5mg was started for HTN. He was recommended for HHPT but since he is already enrolled in cardiac rehab, his insurance wasn't going to cover both services. Pt opted to stay with cardiac rehab instead of HHPT. Discharge discussed with: patient - Time Spent with Patient Total time spent providing and/or coordinating discharge services: Greater than 30 minutes - Discharge Medications Prescriptions: amLODIPine [Norvasc] 5 mg PO DAILY #30 tablet Home Medications: Allopurinol [Zyloprim 100 MG] 100 mg PO BID 11/29/15 [History] Atorvastatin [Lipitor] 40 mg PO DAILY 11/29/15 [History] Loratadine [Allergy Relief] 10 mg PO DAILY 03/04/18 [History] Metoprolol [Lopressor] 25 mg PO BID 03/04/18 [History] Cholecalciferol (Vitamin D3) [Vitamin D3] 4,000 unit PO DAILY 03/05/18 [History] Fluticasone Propionate Nasal [Flonase] 1 spr NS DAILY PRN 03/05/18 [History] Clopidogrel [Plavix] 75 mg PO DAILY 30 Days #30 tablet 03/06/18 [Rx] Nitroglycerin [Nitrostat] 0.4 mg SL PRN PRN 04/01/18 [History] amLODIPine [Norvasc] 5 mg PO DAILY #30 tablet 04/16/18 [Rx] Allergies/Adverse Reactions: 3 Allergy/AdvReac Type Severity Reaction Status Date / Time Sulfa (Sulfonamide Allergy Severe Rash Verified 04/14/18 15:33 Antibiotics) milk AdvReac Intermediate Nausea Verified 04/14/18 15:33 Date of admission: 04/14/18 20:25 Primary care physician: Faviola Lee CNP Consults: 04/15/18 08:45 Consult to Occupational Therapy [CONS] Routine Comment: Evaluate, develop and implement POC Reason for Consult: weakness, recent PCI, for home safety Does patient have active BEDREST order?: No Is patient medically & hemodynamically stable?: Yes Consult to Physical Therapy [CONS] Routine Comment: Evaluate, develop and implement POC Reason for Consult: weakness, recent PCI, for home safety Does patient have active BEDREST order?: No Is patient medically & hemodynamically stable?: Yes - Constitutional Vitals: Temp Pulse Resp BP Pulse Ox 97.8 F 82 18 188/79 95 04/16/18 07:16 04/16/18 07:16 04/16/18 07:16 04/16/18 07:16 04/16/18 07:16 General appearance: Present: cooperative, A&O X 3, pleasant, no acute distress, answers questions appropriately Exam: General: Alert and oriented, not in acute distress. Cardiovascular:Normal S1 & S2, No JVD. Pulse regular. Lungs: clear to auscultation, no wheezes/rales Abdomen:Soft, non-tender, no rigidity. Extremities:No deformity or swelling Neurological:Normal cognition and motor skills. Non-focal - Patient Status Disposition: Home, Self-Care Condition: Fair Functional capacity at discharge: uses cane/walker - Discharge Instructions Instructions: Chronic Hypertension (DC) Follow Up With: Faviola Lee CNP [Primary Care Provider] - - Diet and Activity Activity: as per physical therapy Diet: low fat, low cholesterol - VTE Documentation of Mechanical Device: Intermittent pneumatic compression device
[2018-04-16] MEDS ORDERED: amLODIPine 5 MG TABLET PO SCH (09:00)
[2018-04-16 10:52] VITALS: BP 120/73
--- NOTE | 2018-04-17 17:52 | Electrocardiograph Report ---
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
== END 2018-04-16 11:27 | disposition home or self-care (01) ==
LOC: EMEROOARM 15:24 → 3BNU 15:24 → SUATTDRO 20:25 → 3BNU 20:48
PROVIDERS: ADMIT Internal Medicine; ATTEND Internal Medicine

== ENCOUNTER 2019-04-02 18:46 | Inpatient (IN) ==
--- NOTE | 2019-04-02 23:28 | Internal Med History&Physical ---
<Madeline Jones L - Last Filed: 04/03/19 03:11> Date of Encounter: 04/03/19 Time of Encounter: 11:30 Internal Medicine - H&P: HPI Chief complaint: chest pain Admitted From: Hospital to Hospital Transfer History of present illness: Mr. Branch is a 78 year old male with known coronary artery disease, HTN, and HLD, presents with c/o chest pain. Patient states around noon he was seated in a motorized scooter while shopping he began to feel substernal chest pressure. Patient states substernal chest pain was accompanied with brief tingling in the left arm, and pain radiating to the right jaw. Patient also admitted to nausea when pain occurred, But denied vomiting. Patient went home and tried sleeping but as symptoms went unresolved patient decided to tell his , they then decided to call EMS around 3 PM. Patient denies taking sublingual nitroglycerin or aspirin prior to EMS arrival. On EMS arrival patient was given 325 mg of aspirin. On arrival to [place] ED , EKG was completed, troponins were drawn, chest x-ray was completed. Chest x-ray showed no pleural effusions, or acute process. EKG showed first-degree block sinus rhythm which was unchanged from April 2018. Troponins were elevated at 0.2 6, transfer was initiated to [facility]. Past Med Surg Social Fam HX - Past Medical History Medical history: arthritis, cancer, coronary artery disease, GERD, hyperlipidemia, hypertension, kidney stones, myocardial infarction, osteoporosis, peripheral artery disease, renal disease, TIA, valvular heart disease, other (Sleep apnea on CPAP) Additional medical history: skin/prostate cancer Psychiatric history: no psych history - Past Surgical History Surgical History: angioplasty/stent, appendectomy, cancer surgery, cataract, coronary bypass (CABG), heart valve replacement, prostatectomy, tonsillectomy, vasectomy - Social History Smoking Status: Former smoker Smokeless Tobacco Status: No Alcohol use: recent Drug use: none - Family History Father Family Member Ethnicity: Non- Living Status: Hx Family Cardiac Disorders: Yes Hx Family Neuromuscular Disorders: Yes (Essential tremors) Mother Family Member Ethnicity: Non- Living Status: Hx Family Cardiac Disorders: Yes (father,sister) Hx Family Respiratory Disorders: No Hx Family Cancer: Yes (lung) Hx Family GI Disorders: No Hx Family Endocrine Disorder: No Hx Family Neuromuscular Disorders: Yes (TIAs) Hx Family Neurologic Disorders: Yes (mother) Hx Family HEENT Disorders: No Hx Family Autoimmune Disorders: No Sister Family Member Ethnicity: Non- Living Status: Still Living Hx Family Cardiac Disorders: Yes Grandfather Family Member Ethnicity: Non- Living Status: Hx Family Cardiac Disorders: Yes (CVA) Hx Family Neurologic Disorders: Yes (CVA) Grandmother Family Member Ethnicity: Non- Living Status: Internal Medicine - H&P: Meds Allopurinol [Zyloprim 100 MG] 100 mg PO BID 11/29/15 [History] Atorvastatin [Lipitor] 40 mg PO DAILY 11/29/15 [History] Loratadine [Allergy Relief] 10 mg PO DAILY 03/04/18 [History] Metoprolol [Lopressor] 25 mg PO BID 03/04/18 [History] Cholecalciferol (Vitamin D3) [Vitamin D3] 4,000 unit PO DAILY 03/05/18 [History] Fluticasone Propionate Nasal [Flonase] 1 spr NS DAILY PRN 03/05/18 [History] Clopidogrel [Plavix] 75 mg PO DAILY 30 Days #30 tablet 03/06/18 [Rx] Nitroglycerin [Nitrostat] 0.4 mg SL PRN PRN 04/01/18 [History] amLODIPine [Norvasc] 5 mg PO DAILY #30 tablet 04/16/18 [Rx] Allergy/AdvReac Type Severity Reaction Status Date / Time Sulfa (Sulfonamide Allergy Severe Rash Verified 04/02/19 19:11 Antibiotics) milk AdvReac Intermediate Nausea Verified 04/02/19 19:11 All Systems PM: A 10-system review of systems was performed and is negative for pertinent find ings except as documented above in the HPI. Review of systems: Constitutional: Denies Fever, Chills, Headache, Dizziness Respiratory: Denies Shortness of breath, Chronic cough, hemoptysis, Dyspnea at rest, or activity Cardiovascular: Denies Syncope, admits to occasional palpitations and peripheral edema. Gastrointestinal: Denies hematochezia, Abdominal pain,vomiting, admits nausea Genitourinary: Denies Painful urination, hematuria, urinary retention Endocrine: denies unintentional Significant weight changes Skin: Denies rashes, or unexplained bruising - Constitutional Vitals: Temp Pulse Resp BP Pulse Ox 97.6 F 66 17 120/73 97 04/02/19 22:50 04/02/19 22:50 04/02/19 22:50 04/02/19 22:50 04/02/19 23:12 Exam: Gen: alert/oriented, no acute distress. Head: atraumatic, normocephalic. ENT: no oropharyngeal erythema, mucous membranes moist. Neck: No thyromegaly appreciated. Neck supple no cervical lymphadenopathy. Resp: CTAB, no wheezing, rhonchi, or rhales. CV: RRR, Normal S1 and S2. +3 systolic murmur at R sternal border radiating to carotids; no gallops, or rubs. GI/Abdominal exam: obese, bowel sounds throughout, soft, non-tender, non-distended; no hepatosplenomegaly Skin: intact; no rashes, lesions, or bruising. Ext: +2 pitting LE b/l edema, No cyanosis, pulses +2/4 bilaterally UE and LE. Neuro: no focal deficits, cooperative with exam. - Assessment and Plan (1) Non-STEMI (non-ST elevated myocardial infarction) Current Visit: Yes Status: Acute Assessment and plan: Patient is a 78-year-old male with past medical history of coronary artery disease with most recent stent placement 03/05/18. Who presents today from outside ED with substernal chest pain that radiated to the jaw and mild tingling in the left arm. Patient has additional history of stent placement in 2010 in addition to aortic valve replacement with porcine valve in 2011. In route to [facility] patient was given 325 mg of aspirin. In [place] ED patient was given sublingual nitroglycerin and in route to [place] patient was started on heparin drip. Patient states sublingual nitroglycerin helped to alleviate substernal chest pain. Chest x-ray showed no acute process. EKG showed first-degree block, but no acute ischemic changes. Patient also has increasing troponins . Plan: - Telemetry - continue to trend troponins. - initial troponins .. - Heparin drip - continue plavix - Aspirin 81Mg - Atorvastatin 40mg - Consult Cardiology - SL Nitro for Chest pain PRN. (2) Gout Current Visit: Yes Status: Chronic Assessment and plan: continue pt allopurinol pending improval of SCr. Qualifiers: Gout site: unspecified site Gout etiology: unspecified cause Chronicity: chronic Presence of tophus: without tophus Qualified Code(s): M1A.9XX0 - Chronic gout, unspecified, without tophus (tophi) (3) HLD (hyperlipidemia) Current Visit: Yes Status: Chronic Assessment and plan: Continue Atorvastatin 40mg Qualifiers: Hyperlipidemia type: unspecified Qualified Code(s): E78.5 - Hyperlipidemia, unspecified (4) HTN (hypertension) Current Visit: Yes Status: Chronic Assessment and plan: Continue Amlodipine 5mg - Take Metoprolol 25mg Qualifiers: Hypertension type: essential hypertension Qualified Code(s): I10 - Essential (primary) hypertension (5) KAREN (obstructive sleep apnea) Current Visit: Yes Status: Chronic Assessment and plan: Patient has been diagnosed with KAREN Plan: CPAP at night PRN (6) DVT prophylaxis Current Visit: Yes Status: Acute Assessment and plan: Heparin gtt - Time Spent With Patient Total time spent is greater than 50% in coordination of care (as documented) at patient's floor/unit and/or counseling patient: <NayeliTonya - Last Filed: 04/03/19 04:17> Date of Encounter: 04/02/19 All Systems PM: A 10-system review of systems was performed and is negative for pertinent findings except as documented above in the HPI. - Constitutional Vitals: Temp Pulse Resp BP Pulse Ox 97.6 F 66 17 120/73 97 04/02/19 22:50 04/02/19 22:50 04/02/19 22:50 04/02/19 22:50 04/02/19 23:12 Internal Med - H&P Results - Labs Labs: Cardiac Enzymes 04/03/19 Range/Units 00:03 Troponin I 2.50 H* (< 0.04) ng/mL - Time Spent With Patient Total time spent is greater than 50% in coordination of care (as documented) at patient's floor/unit and/or counseling patient: - Attending Attestation I performed a history and physical exam of the patient on 04/02/19 and discussed management with the resident. I reviewed the resident's note and agree with the documented findings and plan of care. Cesar De Los Santos Mohminesh is a 78 year old man with coronary artery disease with stent placement in 2010 an angioplasty one year ago done because of severe tortuosity and calcifications noted making stent placement difficult but noted to have severe 2 vessel disease. He also has a bioprosthetic aortic valve. He presents on transfer from [place] emergency room where he presented to with complaints of chest pain that started this afternoon while he was on his electric scooter. He localizes it to his mid sternum but had radiation to his right neck and left arm that was transient. He denied associated dyspnea, nausea and diaphoresis. He was hemodynamically stable on arrival to the ER with EKG showing normal sinus rhythm and no ischemic changes. He was given sublingual nitroglycerin with brought modest relief of his chest pain. Serum troponin was 0.26. He was started on heparin drip and transferred here. At the time of my evaluation he reports feeling better and is not an acute distress. For some unknown reason he is not on aspirin and only takes clopidogrel. Physical exam is remarkable for grade III-IV/ systolic murmur at the right upper sternal border. We will manage him as NSTEMI. Trend troponins. Continue heparin drip. Nitroglycerin/morphine as needed for pain. Monitor on telemetry. Repeat EKGs. Obtain a TTE and consult cardiology in the morning. Keep nothing by mouth past midnight the meantime. JAKI score 5. LIT GARCIA.
[2019-04-03] MEDS ORDERED: Naloxone 0.4 MG/ML INJ IVP PRN (00:19)
[2019-04-03] MEDS ORDERED: *HR* Heparin 5,000 UNIT/ML VIAL IVP PRN ×2 (01:25)
[2019-04-03] MEDS ORDERED: Heparin 25,000 UNIT/250 ML D5W 25,000 UNIT/250 ML IV.SOLN IVC SCH (01:30)
[2019-04-03] MEDS ORDERED: Nitroglycerin 0.4 MG TAB.SUBL SL PRN (02:02)
[2019-04-03] MEDS ORDERED: Fluticasone Propionate Nasal 50 MCG/SPRAY BOTTLE NS PRN (02:02)
[2019-04-03 06:26] LABS: Basophils % 0.2 %; Eosinophils % 0.1 %; Hematocrit 45.6 % (37.5-50.1); Hemoglobin 14.8 g/dL (12.9-16.9); Immature Granulocytes % 0.3 % (0-4); Lymphocytes % 21.2 %; Mean Corpuscular HGB Conc 32.5 g/dL (31.6-35.5); Mean Corpuscular Hemoglobin 30.9 pg (28.0-33.3); Mean Corpuscular Volume 95.2 fL (83.0-100.0); Mean Platelet Volume 10.2 fL (9.4-12.4); Monocytes # 0.7 K/mcL (0.0-1.3); Monocytes % 7.1 %; Neutrophils # 6.8 K/mcL (1.6-8.9); Platelet Count 189 K/mcL (140-400); Red Blood Count 4.79 M/mcL (4.19-5.50); Red Cell Distribution Width 13.4 % (11.5-14.5); Segmented Neutrophils % 71.1 %; White Blood Count 9.6 K/mcL (4.3-11.1)
[2019-04-03 06:48] LABS: BUN/Creatinine Ratio 24 (6-26); Blood Urea Nitrogen 25 mg/dL (8-23); Calcium 9.3 mg/dL (8.6-10.3); Carbon Dioxide 26 mEq/L (23-29); Chloride 106 mEq/L (98-107); Chol/HDL Ratio 3.3 (0-4.9); Cholesterol 151 mg/dL (< 200); Glucose 128 mg/dL (70-105); HDL Cholesterol 46 mg/dL (40-59); LDL Cholesterol,Calculated 77 mg/dL (0-99); Osmolality,Calculated 302 (280-300); Sodium 143 mEq/L (136-145); Triglycerides 138 mg/dL (< 150); eGFR For African Americans > 60 (> 60); eGFR For Non-African Americans > 60 (> 60)
--- NOTE | 2019-04-03 08:36 | Cardiology Consult Note ---
Date of Encounter: 04/03/19 Time of Encounter: 08:00 Assessment and Plan (1) NSTEMI (non-ST elevated myocardial infarction) Current Visit: Yes Status: Acute Troponins 0.26, 2.50, 10.98. EKG w/o ischemic changes. On Heparin gtt. Reports chest heaviness yesterday /10 associated with SOB and nausea. No relieving factors. Chest heaviness better today but not gone. Recent CV Testing: -LHC 03/05/18: successful PTCA in the 1st OM, severe two vessel coronary artery disease, severe tortuousity and calcified Left main ostial CIRC make crossing with a stent difficult -Echo 03/05/18: LVEF 60-65%, moderate MR, mild-moderate TR Given CAD hx and elevated troponins, would recommend LHC today. A/R/B discussed with patient- he is agreeable. (2) CAD (coronary artery disease), [place] coronary artery Current Visit: Yes Status: Acute S/p PCTA to 1st OM 03/22 and reported hx of PCI in 2010. Continue ASA, Plavix, Lipitor and BB. Echo pending. Plan as above. Qualifiers: [place] vs. transplanted heart: [place] heart Associated angina: with unspecified angina Qualified Code(s): I25.119 - Atherosclerotic heart disease of [place] coronary artery with unspecified angina pectoris (3) Dizziness Current Visit: Yes Status: Acute Chronic lightheadedness and dizziness. Bradycardia on tele, lowest HR 44, average HR 62. [facility]ady[facility]. Tilt test 04/01/18: evidence of a vasodepressor response to passive tilt, brief episode of syncope occurred at 30 minutes. Will decrease Lopressor to 12.5 BID and continue to monitor. (4) HTN (hypertension) Current Visit: Yes Status: Chronic Blood pressure at goal today. Continue Amlodipine and Lopressor. Qualifiers: Hypertension type: essential hypertension Qualified Code(s): I10 - Essential (primary) hypertension Discussion w patient/family: The assessment and plan as outlined above was discussed with the patient and/or family members who expressed understanding and agreement. All questions were ans wered. Thank you for involving us in the care of your patient. Please call with any questions. Will discuss the above assessment and plan with Dr. Emerson and make changes as necessary. History of Present Illness Consult date: 04/03/19 Consult reason: NSTEMI Chief complaint: Chest heaviness History of present illness: Mr. Branch is a 78 year old male with known CAD, HTN, and HLD, presents with c/o chest pain. States around noon he was seated in a motorized scooter while shopping he began to feel 5/10 chest heaviness associated with SOB and nausea. Patient states substernal chest pain was accompanied with brief tingling in the left arm, and pain radiating to the right jaw. Pt went home and tried sleeping but as symptoms went unresolved decided to call EMS around 3 PM. Patient denies taking sublingual nitroglycerin or aspirin prior to EMS arrival. Past Med Surg Social Fam HX - Past Medical History Medical history: arthritis, cancer, coronary artery disease, GERD, hyperlipidemia, hypertension, kidney stones, myocardial infarction, osteoporosis, peripheral artery disease, renal disease, TIA, valvular heart disease, other (Sleep apnea on CPAP) Additional medical history: skin/prostate cancer Psychiatric history: no psych history - Past Surgical History Surgical History: angioplasty/stent, appendectomy, cancer surgery, cataract, coronary bypass (CABG), heart valve replacement, prostatectomy, tonsillectomy, vasectomy - Social History Smoking Status: Former smoker Smokeless Tobacco Status: No Alcohol use: recent Drug use: none - Family History Father Family Member Ethnicity: Non- Living Status: Hx Family Cardiac Disorders: Yes Hx Family Neuromuscular Disorders: Yes (Essential tremors) Mother Family Member Ethnicity: Non- Living Status: Hx Family Cardiac Disorders: Yes (father,sister) Hx Family Respiratory Disorders: No Hx Family Cancer: Yes (lung) Hx Family GI Disorders: No Hx Family Endocrine Disorder: No Hx Family Neuromuscular Disorders: Yes (TIAs) Hx Family Neurologic Disorders: Yes (mother) Hx Family HEENT Disorders: No Hx Family Autoimmune Disorders: No Sister Family Member Ethnicity: Non- Living Status: Still Living Hx Family Cardiac Disorders: Yes Grandfather Family Member Ethnicity: Non- Living Status: Hx Family Cardiac Disorders: Yes (CVA) Hx Family Neurologic Disorders: Yes (CVA) Grandmother Family Member Ethnicity: Non- Living Status: Medications and Allergies Allopurinol [Zyloprim 100 MG] 100 mg PO BID 11/29/15 [History] Atorvastatin [Lipitor] 40 mg PO DAILY 11/29/15 [History] Loratadine [Allergy Relief] 10 mg PO DAILY 03/04/18 [History] Metoprolol [Lopressor] 25 mg PO BID 03/04/18 [History] Cholecalciferol (Vitamin D3) [Vitamin D3] 4,000 unit PO DAILY 03/05/18 [History] Fluticasone Propionate Nasal [Flonase] 1 spr NS DAILY PRN 03/05/18 [History] Clopidogrel [Plavix] 75 mg PO DAILY 30 Days #30 tablet 03/06/18 [Rx] Nitroglycerin [Nitrostat] 0.4 mg SL PRN PRN 04/01/18 [History] amLODIPine [Norvasc] 5 mg PO DAILY #30 tablet 04/16/18 [Rx] Allergy/AdvReac Type Severity Reaction Status Date / Time Sulfa (Sulfonamide Allergy Severe Rash Verified 04/02/19 19:11 Antibiotics) milk AdvReac Intermediate Nausea Verified 04/02/19 19:11 All Systems Review: The remainder of the systems were reviewed and are negative - Cardiovascular Cardiovascular: as per HPI, chest pain at rest, dyspnea at rest, no leg edema Physical Examination General: Conversant, No Apparent Distress HEENT: Atraumatic, Normocephaly, Mucus Membranes Moist Neck: No JVD, Normal carotid pulses Cardiac: Reg Rate and Rhythm, Normal S1 and S2, No Murmur Lungs: Normal Breath Sounds, No Wheeze, Rales, Rhonchi Neuro: Alert and responsive, No focal deficits noted Abdomen: Soft, Non-Tender Skin: No rashes noted on visualized skin Musculoskeletal: No Chest Wall Tenderness Extremities: No Clubbing, No Cyanosis, No Edema, Normal Pulses Results 04/03/19 06:12 04/03/19 06:12 Lab Results 04/03/19 04/03/19 04/03/19 00:03 06:12 06:12 WBC 9.6 Hgb 14.8 Hct 45.6 Plt Count 189 Sodium 143 Potassium 4.0 Chloride 106 Carbon Dioxide 26 BUN 25 H Creatinine 1.03 Glucose 128 H Calcium 9.3 Troponin I 2.50 H* 04/03/19 06:12 WBC Hgb Hct Plt Count Sodium Potassium Chloride Carbon Dioxide BUN Creatinine Glucose Calcium Troponin I 10.98 H* - Imaging and Cardiology Echo: pending Cardiac cath: report reviewed Other Results: 12hr tele reviewed: average HR 62, sinus bradycardia overnight. - EKG Interpretation EKG results cardiology: personally reviewed, sinus rhythm (1st degree AV block) Consult Discharge Plan - Plan Referrals: Faviola Lee CNP [Primary Care Provider] - HAS-BLED Score - Score Elderly: Age>65 years Medication usage predisposing to bleeding: Antiplatelet agents, NSAIDs, Anticoagulants Score: 2
[2019-04-03] MEDS: amLODIPine 5 MG TABLET PO SCH (10:47)
[2019-04-03] MEDS: Aspirin Enteric Coated 81 MG Tablet PO SCH (10:47)
[2019-04-03] MEDS: Cholecalciferol (D-3) 1,000 UNIT (25MCG) TABLET PO SCH (10:47)
[2019-04-03] MEDS: Loratadine 10 MG TABLET PO SCH (10:47)
--- NOTE | 2019-04-03 11:22 | Internal Med Progress Note ---
Hospitalist Progress Note - Encounter Date of Encounter: 04/03/19 Time of Encounter: 08:45 - Subjective Interval History: H&P reviewed. 78-year-old male with history of CAD, hypertension, hyperlipidemia, status post aortic valve replacement, who was admitted overnight due to NSTEMI. She states that his chest pain is definitely better but is not completely gone yet. Denies any nausea last vomiting or worsening shortness of breath. No fever overnight. - Exam Vitals: Temp Pulse Resp BP Pulse Ox 98.0 F 90 16 123/72 93 04/03/19 08:52 04/03/19 08:52 04/03/19 08:52 04/03/19 08:52 04/03/19 08:52 Exam: General: Alert and oriented, not in acute distress. Cardiovascular: systolic murmur over the precordium, no LE swelling Lungs: clear to auscultation, no wheezes/rales Abdomen:Soft, non-tender, no rigidity. Extremities:No deformity or swelling Neurological:Normal cognition and motor skills. Non-focal - Assessment and Plan (1) NSTEMI (non-ST elevated myocardial infarction) Current Visit: Yes Status: Acute Assessment and Plan: History of CAD with most recent stent placement on 03/05/2018 Presented with chest pain and elevated troponin of 2.5 - 10.98 EKG did not show any concerning ischemic changes Echo showed preserved EF without regional wall motion abnormalities Started on heparin drip, continue Resume aspirin, Plavix, and statin. Cardiology input appreciated, for left heart catheterization today. (2) Status post aortic valve replacement Current Visit: Yes Status: Acute Assessment and Plan: Echocardiogram showed bioprosthetic aortic valve with normal function without stenosis or regurgitation. (3) HLD (hyperlipidemia) Current Visit: Yes Status: Chronic Assessment and Plan: Resume statin (4) HTN (hypertension) Current Visit: Yes Status: Chronic Assessment and Plan: Continue home meds, beta papo dosing was decreased due to sinus bradycardia. (5) KAREN (obstructive sleep apnea) Current Visit: Yes Status: Chronic Assessment and Plan: CPAP at HS (6) DVT prophylaxis Current Visit: Yes Status: Acute Assessment and Plan: hep gtt - Time Spent with Patient Total time spent is greater than 50% in coordination of care (as documented) at patient's floor/unit and/or counseling patient: 25 - 35 minutes Plan of Care Discussed with: nurse Internal Medicine: Result - Labs CBC & Chem 7: 04/03/19 06:12 04/03/19 06:12 Labs: Short CBC 04/03/19 Range/Units 06:12 WBC 9.6 (4.3-11.1) K/mcL Hgb 14.8 (12.9-16.9) g/dL Hct 45.6 (37.5-50.1) % Plt Count 189 (140-400) K/mcL Neutrophils # 6.8 (1.6-8.9) K/mcL BMP 04/03/19 06:12 Sodium 143 Potassium 4.0 Chloride 106 Carbon Dioxide 26 BUN 25 H Creatinine 1.03 Glucose 128 H Calcium 9.3 Cardiac Enzymes 04/03/19 04/03/19 Range/Units 00:03 06:12 Troponin I 2.50 H* 10.98 H* (< 0.04) ng/mL - Impressions Impressions Echocardiogram 04/03/19 01:57 Impressions: LVEF 65%. Mild concentric left ventricular hypertrophy. Mild left ventricular diastolic dysfunction. Normal right ventricular structure and function. Bioprosthetic aortic valve with normal function, no stenosis or regurgitation. Mild mitral stenosis. Mild tricuspid regurgitation. Mild pulmonic regurgitation. Mild pulmonary hypertension. Left Ventricular Wall Motion: Rest Echo Findings All wall segments showed normal motion. Findings: Study Quality * Technically adequate exam. ECG Findings * Normal sinus rhythm. Left Ventricle * LVEF 65%. * Normal LV chamber size and systolic function. * Mild concentric left ventricular hypertrophy. * Mild left ventricular diastolic dysfunction. * Atypical septal motion consistent with post-operative status. Right Ventricle * Normal right ventricular structure and function. Left Atrium * Normal left atrial size. Right Atrium * Normal right atrial size. Interatrial Septum * Interatrial septum not well evaluated. Aortic Valve * Bioprosthetic aortic valve not well visualized, normal function, no stenosis or regurgitation. Mitral Valve * Moderately calcified mitral valve leaflets. * Mild mitral stenosis. * Mean transmitral gradient is 3 mmHg at HR 68 bpm. * Trace mitral regurgitation. Tricuspid Valve * Normal tricuspid valve structure. * No tricuspid stenosis. * Mild tricuspid regurgitation. * Estimated RVSP is 40 mmHg. * Estimated RA pressure is 3 mmHg. * Mild pulmonary hypertension. Pulmonic Valve * Pulmonic valve is not well visualized. * No pulmonic stenosis. * Mild pulmonic regurgitation. Aorta * Normally sized aortic root. Pericardium * The pericardium appears normal. IVC * The IVC is not dilated. * > 50% respiratory change Consult Discharge Plan - Plan Referrals: Faviola Lee, RESIDENTIAL SERVICE TECHNICIAN [Primary Care Provider] - (3) HLD (hyperlipidemia) Qualifiers: Hyperlipidemia type: unspecified Qualified Code(s): E78.5 - Hyperlipidemia, unspecified (4) HTN (hypertension) Qualifiers: Hypertension type: essential hypertension Qualified Code(s): I10 - Essential (primary) hypertension
[2019-04-03] MEDS ORDERED: Heparin 1,000 UNITS/500 mL 500 ML ONE (13:02)
[2019-04-03] MEDS ORDERED: Iopamidol 125 ML INFUS..BTL ONE ×2 (13:02→15:05)
[2019-04-03] MEDS ORDERED: *HR* Heparin 10,000 UNIT/10 ML VIAL ONE (13:02)
[2019-04-03] MEDS ORDERED: 0.9 % Sodium Chloride 1,000 ML ONE (13:02)
[2019-04-03] MEDS ORDERED: Nitroglycerin 1,000 MCG/10 ML VIAL IV ONE (13:03)
--- NOTE | 2019-04-03 13:11 | Pre-Sedation Evaluation ---
Pre-sedation evaluation - Pre-sedation checklist Date of procedure: 04/03/19 Procedure: Left Heart Catheterization Recent Vitals: Last Vital Signs Temp 98.0 F 04/03/19 08:52 Pulse 90 04/03/19 08:52 Resp 16 04/03/19 08:52 BP 123/72 04/03/19 08:52 Pulse Ox 93 04/03/19 08:52 H&P (including ROS) documented in medical record: Yes Previous reaction to sedatives/anesthetics: No Dietary Status: NPO after Midnight Dentition: No loose teeth or bridges ASA Classification *see protocol: CLASS II-Mild systemic disease Cardiac Registry (Cardio Only) - Functional Capacity Functional Capacity: < 4 METS - Clincal Frailty Scale Clinical Frailty Scale: Managing Well
[2019-04-03] MEDS ORDERED: *HR* FentaNYL (PF) 100 MCG/2 ML VIAL ONE (14:00)
[2019-04-03] MEDS ORDERED: *HR* Midazolam HCl 2 MG/2 ML VIAL ONE (14:00)
[2019-04-03] MEDS ORDERED: Tirofiban 12.5 MG/250ML 12.5 MG/250 ML BAG ONE (14:56)
[2019-04-03] MEDS ORDERED: Ondansetron 4 MG/2 ML VIAL ONE (16:12)
[2019-04-03] MEDS ORDERED: Tirofiban 12.5 MG/250ML 12.5 MG/250 ML BAG IVC SCH (16:30)
--- NOTE | 2019-04-03 20:54 | Electrocardiograph Report ---
[place] [id number] Test Date: 2019-04-02 Pat Name: Cesar Branch Department: 111 Room: 2NE25 Gender: M Eyeglass Lens Generator: Jordi : 1940 Requested By: Gerald Tyler Order Number: [id number] Reading MD: Jesi Giraldo Measurements Intervals [place] Rate: 64 P: -32 [place]: 185 QRS: -24 QRSD: 93 T: 81 QT: 430 QTc: 439 Interpretive Statements SINUS RHYTHM WITH MARKED SINUS ARRHYTHMIA NONSPECIFIC T-WAVE ABNORMALITY Electronically Signed On 04-03-2019 20:53:17 EDT by Jesi Giraldo
[2019-04-04 04:39] LABS: Hematocrit 44.8 % (37.5-50.1); Hemoglobin 14.6 g/dL (12.9-16.9); Mean Corpuscular HGB Conc 32.6 g/dL (31.6-35.5); Mean Corpuscular Hemoglobin 31.7 pg (28.0-33.3); Mean Corpuscular Volume 97.4 fL (83.0-100.0); Mean Platelet Volume 10.2 fL (9.4-12.4); Platelet Count 192 K/mcL (140-400); Red Cell Distribution Width 13.5 % (11.5-14.5); White Blood Count 9.4 K/mcL (4.3-11.1)
[2019-04-04 05:00] LABS: BUN/Creatinine Ratio 16 (6-26); Blood Urea Nitrogen 18 mg/dL (8-23); Calcium 9.1 mg/dL (8.6-10.3); Carbon Dioxide 30 mEq/L (23-29); Chloride 105 mEq/L (98-107); Glucose 107 mg/dL (70-105); Magnesium 2.1 mg/dL (1.6-2.6); Osmolality,Calculated 298 (280-300); Potassium 4.4 mEq/L (3.5-5.1); Sodium 143 mEq/L (136-145); eGFR For African Americans > 60 (> 60); eGFR For Non-African Americans > 60 (> 60)
[2019-04-04 07:35] VITALS: BP 138/75
[2019-04-04] MEDS: Aspirin Enteric Coated 81 MG Tablet PO SCH (08:06)
[2019-04-04] MEDS: Cholecalciferol (D-3) 1,000 UNIT (25MCG) TABLET PO SCH (08:06)
[2019-04-04] MEDS: amLODIPine 5 MG TABLET PO SCH (08:06)
[2019-04-04] MEDS: Loratadine 10 MG TABLET PO SCH (08:06)
--- NOTE | 2019-04-04 09:42 | Discharge Summary ---
- NOTES TO OUTPATIENT PROVIDER Notes to Outpatient Provider: Follow up with cardiology and cardiac rehab as outpatient Date of Encounter: 04/04/19 Time of Encounter: 07:15 - Discharge Diagnosis (1) NSTEMI (non-ST elevated myocardial infarction) Priority: Primary Status: Acute (2) Status post aortic valve replacement Priority: Secondary Status: Acute (3) HLD (hyperlipidemia) Priority: Secondary Status: Chronic Qualifiers: Hyperlipidemia type: unspecified Qualified Code(s): E78.5 - Hyperlipidemia, unspecified (4) HTN (hypertension) Priority: Secondary Status: Chronic Qualifiers: Hypertension type: essential hypertension Qualified Code(s): I10 - Essential (primary) hypertension (5) KAREN (obstructive sleep apnea) Priority: Secondary Status: Chronic (6) DVT prophylaxis Priority: Secondary Status: Acute Hospital course: Mr. Branch is a 78 year old male with history of CAD, hypertension, hyperlipidemia, status post aortic valve replacement, who was admitted due to NSTEMI. Troponin trended from [id number] without ischemic changes on EKG. Echocardiogram showed preserved EF without regional wall motion abnormalities. He was started on hep gtt and underwent LHC on 04/03 with PCI to mid Circ. pRCA stent appeared to be patent. He will be discharged on DAPT, increased dose of statin, and with outpatient cardiology and cardiac rehabilitation follow-up. Discharge discussed with: patient, case management - Time Spent with Patient Total time spent providing and/or coordinating discharge services: 32 mins - Discharge Medications Prescriptions: New Aspirin Enteric Coated [Aspirin EC] 81 mg PO DAILY #30 tablet. Continued Cholecalciferol (Vitamin D3) [Vitamin D3] 4,000 unit PO DAILY Fluticasone Propionate Nasal [Flonase] 1 spr NS DAILY PRN PRN Reason: Allergy Symptoms Clopidogrel [Plavix] 75 mg PO DAILY 30 Days #30 tablet Nitroglycerin [Nitrostat] 0.4 mg SL AD PRN PRN Reason: Chest Pain amLODIPine [Norvasc] 5 mg PO DAILY #30 tablet Losartan Potassium [Cozaar] 50 mg PO DAILY Furosemide [Lasix] 20 mg PO DAILY Allopurinol [Zyloprim 100 MG] 100 mg PO BID Metoprolol [Lopressor] 25 mg PO BID Changed Atorvastatin [Lipitor] 80 mg PO DAILY 30 Days #60 tablet Home Medications: Allopurinol [Zyloprim 100 MG] 100 mg PO BID 11/29/15 [History] Metoprolol [Lopressor] 25 mg PO BID 03/04/18 [History] Cholecalciferol (Vitamin D3) [Vitamin D3] 4,000 unit PO DAILY 03/05/18 [History] Fluticasone Propionate Nasal [Flonase] 1 spr NS DAILY PRN 03/05/18 [History] Clopidogrel [Plavix] 75 mg PO DAILY 30 Days #30 tablet 03/06/18 [Rx] Nitroglycerin [Nitrostat] 0.4 mg SL AD PRN 04/01/18 [History] amLODIPine [Norvasc] 5 mg PO DAILY #30 tablet 04/16/18 [Rx] Furosemide [Lasix] 20 mg PO DAILY 04/03/19 [History] Losartan Potassium [Cozaar] 50 mg PO DAILY 04/03/19 [History] Aspirin Enteric Coated [Aspirin EC] 81 mg PO DAILY #30 tablet. 04/04/19 [Rx] Atorvastatin [Lipitor] 80 mg PO DAILY 30 Days #60 tablet 04/04/19 [Rx] Allergies/Adverse Reactions: Allergy/AdvReac Type Severity Reaction Status Date / Time Sulfa (Sulfonamide Allergy Severe Rash Verified 04/02/19 19:11 Antibiotics) milk AdvReac Intermediate Nausea Verified 04/02/19 19:11 Date of admission: 04/02/19 23:14 Primary care physician: Faviola Lee CNP Consults: 04/03/19 01:57 Consult to Cardiology [CONS] Routine Comment: Consulting Provider: Cardiology Noemi Reason for Consult: NSTEMI Call Completed: No 04/03/19 16:28 Consult to Cardiac Rehabilitation-Phase1 [CONS] Routine Comment: Reason for Consult: AMI Call Completed: Yes Consult to Nurse Navigator [CONS] Routine Comment: - Constitutional Vitals: Temp Pulse Resp BP Pulse Ox 98.1 F 77 14 138/75 96 04/04/19 07:35 04/04/19 07:35 04/04/19 07:35 04/04/19 07:35 04/04/19 07:35 Exam: General: Alert and oriented, not in acute distress. Cardiovascular: systolic murmur over the precordium, no LE swelling Lungs: clear to auscultation, no wheezes/rales Abdomen:Soft, non-tender, no rigidity. Extremities:No deformity or swelling Neurological:Normal cognition and motor skills. Non-focal - Patient Status Disposition: Home, Self-Care Condition: Fair Overall status at discharge: patient is progressing back to baseline - Discharge Instructions Instructions: Chronic Hypertension (DC) Follow Up With: Faviola Lee CNP [Primary Care Provider] - Diogo Bosch [Partnered Physician] - - Diet and Activity Activity: as per the cardiac rehab Diet: low salt diet
--- NOTE | 2019-04-04 12:05 | Cardiology Progress Note ---
Date of Encounter: 04/04/19 Time of Encounter: 10:45 Assessment and Plan (1) NSTEMI (non-ST elevated myocardial infarction) Current Visit: Yes Status: Acute Per cardiology: -Troponins 0.26, 2.50, 10.98. EKG w/o ischemic changes. -S/p LHC yesterday with PTCA to circumflex. -Denies chest pain. -TTE with LVEF 65%, no segmental wall motion abnormalities noted. -On asa, statin, BB, plavix. Educated on dual anti-platelet therapy uninterrupted for at least one month, states understanding. -RIght groin access site with mild ecchymosis, no hematoma. Right groin access site management education reviewed with patient, states understanding. -CArdiology will sign off, will arrange outpatient follow up. -Risk factor modification stressed with patient. (2) CAD (coronary artery disease), [place] coronary artery Current Visit: Yes Status: Acute Per cardiology: -See NSTEMI Qualifiers: [place] vs. transplanted heart: [place] heart Associated angina: with unspecified angina Qualified Code(s): I25.119 - Atherosclerotic heart disease of [place] coronary artery with unspecified angina pectoris (3) Dizziness Current Visit: Yes Status: Acute Per cardiology: -Improved today with lower dose BB. -AVerage HR previous 12 hours noted to be 73 -Will continue to monitor in outpatient setting. Discussion w patient/family: The assessment and plan as outlined above was discussed with the patient who expressed understanding and agreement. All questions were answered. Thank you for involving us in the care of your patient. Please call with any questions. Discussed and reviewed with Subjective Principal diagnosis: NSTEMI Interval history: Pateint denies chest pain. Objective Vital Signs Temperature 97.6 F 04/02/19 22:50 Pulse Rate 66 04/02/19 22:50 Respiratory Rate 17 04/02/19 22:50 Blood Pressure 120/73 04/02/19 22:50 O2 Sat by Pulse Oximetry 97 04/02/19 22:50 Temperature 98.1 F 04/04/19 07:35 Pulse Rate 77 04/04/19 07:35 Respiratory Rate 14 04/04/19 07:35 Blood Pressure 138/75 04/04/19 07:35 O2 Sat by Pulse Oximetry 96 04/04/19 07:35 General: Conversant, No Apparent Distress HEENT: Atraumatic, Normocephaly, Mucus Membranes Moist Neck: No JVD, Normal carotid pulses Cardiac: Reg Rate and Rhythm, Normal S1 and S2, No Murmur Lungs: Normal Breath Sounds, No Wheeze, Rales, Rhonchi Neuro: Alert and responsive, No focal deficits noted Abdomen: Soft, Non-Tender Skin: No rashes noted on visualized skin, Other (Right groin access site with mild ecchymosis, no hematoma. ) Musculoskeletal: No Chest Wall Tenderness Extremities: No Clubbing, No Cyanosis, No Edema, Normal Pulses Results 04/04/19 03:50 04/04/19 03:50 Lab Results Active Medications Allopurinol (Zyloprim) 100 mg PO BID [facility] Stop: 10/03/19 09:01 Last Admin: 04/04/19 08:06 Dose: 100 mg Documented by: Amlodipine Besylate (Norvasc) 5 mg PO DAILY [facility]; Protocol Stop: 10/03/19 09:01 Last Admin: 04/04/19 08:06 Dose: 5 mg Documented by: Aspirin (Aspirin Ec) 81 mg PO DAILY [facility] Stop: 10/03/19 09:01 Last Admin: 04/04/19 08:06 Dose: 81 mg Documented by: Atorvastatin Calcium (Lipitor) 40 mg PO DAILY [facility] Stop: 10/03/19 09:01 Last Admin: 04/04/19 08:06 Dose: 40 mg Documented by: Clopidogrel Bisulfate (Plavix) 75 mg PO DAILY [facility] Stop: 10/03/19 09:01 Last Admin: 04/04/19 08:05 Dose: 75 mg Documented by: Fluticasone Propionate (Flonase) 100 mcg NS DAILY PRN; Protocol PRN Reason: Allergy Symptoms Stop: 10/03/19 02:03 Loratadine (Claritin) 10 mg PO DAILY [facility]; Protocol Stop: 10/03/19 09:01 Last Admin: 04/04/19 08:06 Dose: Not Given Documented by: Metoprolol Tartrate (Lopressor) 12.5 mg PO BID [facility] Stop: 10/03/19 21:01 Last Admin: 04/04/19 08:05 Dose: 12.5 mg Documented by: Naloxone HCl (Narcan) 0.4 mg IVP Q2MPRN PRN PRN Reason: SEE COMMENTS Stop: 10/03/19 00:20 Nitroglycerin (Nitroglycerin) 0.4 mg SL Q5MIN PRN PRN Reason: CHEST PAIN Stop: 10/03/19 02:03 Vitamin D (Vitamin D) 1,000 unit PO DAILY [facility] Stop: 10/03/19 09:01 Last Admin: 04/04/19 08:06 Dose: 1,000 unit Documented by: Laboratory Tests 04/04/19 04/04/19 03:50 03:50 Hgb 14.6 Creatinine 1.14 - Imaging and Cardiology Chest Xray: report reviewed Echo: report reviewed Cardiac cath: report reviewed - EKG Interpretation EKG results cardiology: other (Telemetry reviewed with average HR previous 12 hours noted to be 73, SR. PVCs, PACs noted.) Consult Discharge Plan - Plan Instructions: Aspirin (By mouth), Atorvastatin (By mouth), Angina (DC), Left Heart Catheterization (DC), Chronic Hypertension (DC) Referrals: Faviola Lee CNP [Primary Care Provider] - (submitted a web request for the office of Faviola Lee to call the patient with a hosptial follow up 5-7 days after discharge from [facility] ) Diogo Bosch [Partnered Physician] - Prescriptions: Aspirin Enteric Coated [Aspirin EC] 81 mg PO DAILY #30 tablet. Atorvastatin [Lipitor] 80 mg PO DAILY 30 Days #60 tablet
--- NOTE | 2019-04-06 22:32 | Electrocardiograph Report ---
[place] [id number] Test Date: 2019-04-04 Pat Name: Cesar Branch Department: 111 Room: 2NE25 Gender: M Transition Advisor: Suasn : 1940 Requested By: Diogo Bosch Order Number: [id number] Reading MD: Jesi Giraldo Measurements Intervals [place] Rate: 80 P: -33 [place]: 175 QRS: -34 QRSD: 90 T: 85 QT: 367 QTc: 402 Interpretive Statements SINUS RHYTHM WITH SINUS ARRHYTHMIA MARKED LEFT AXIS DEVIATION [QRS AXIS < -30] LEFT VENTRICULAR HYPERTROPHY AND ST-T CHANGE [VOLTAGE CRITERIA PLUS ST/T ABNORMALITY] Electronically Signed On 04-06-2019 22:30:40 EDT by Jesi Giraldo
--- NOTE | 2019-04-07 16:11 | Invasive Diagnostic Lab Proc ---
Name: Cesar Branch Date of Study: 04/03/2019 Date: 1940 Ht: 68.9in Medical Record#: [id number] Age: 78 Wt: 249.12lb Gender: Male BSA: 2.27 Order #: [id number] BMI: 36.9 Physicians Procedure Physician: Diogo Bosch MD Referring MD: Referring MD: Staff Name Position Time In [facility] RT (R) Monitor 02:17 PM Bryanna Welsh RT (R) Scrub 02:17 PM Andra Patel RT (R) Scrub 02:17 PM Eulogio Lemon RN Calender Roll Operator 02:17 PM Procedures Performed Procedure PRQ CARDIAC ANGIOPLAST 1 ART CORONARY ARTERY ANGIO S&I Pre-Procedure Checklist Informed consent is complete signed and on chart. H&P is on chart. ID band is on and ID verified with patient. Patient NPO for procedure The procedure was described for the patient and questions were answered. ECG is on chart. Plan of Care Patient will tolerate the procedure without complications. Adequate level of comfort will be maintained. Hemodynamics will remain stable Patient will recover from procedure without complications. Respiratory function will be maintained. Cardiac rhythm will remain stable. Patient temperature will be maintained. Patient and/or family have verbalized understanding of the procedure. Patient Education Chief Complaint/Reason for Test: Cardiac Cath Developmental Category: Geriatric (65+ years) Developmentally Appropriate for Age: Yes Learning Barriers: None Education Needs: Procedure Education Method: Verbal Information Taught: Cardiac Cath Educational Evaluation: Able to repeat information Intravenous Access Time IV Size Location DC'd Fluid/Drip Rate Units RN 20g 1 /" Patent On Arrival 0.9NaCl ml/hr Allergies Sulfa (Sulfonamide Antibiotics) SULFA (sulfonamide) milk Vital Signs Time BP (mmHg) HR (bpm) O2 Sat. RR (bpm) LOC 02:19 PM / % 5 = Fully awake and oriented or at pre-proc level 02:19 PM / % 4 = Oriented but drowsy 02:34 PM / % 4 = Oriented but drowsy 02:49 PM / % 4 = Oriented but drowsy 03:04 PM / % 4 = Oriented but drowsy 03:20 PM / % 4 = Oriented but drowsy 03:35 PM / % 4 = Oriented but drowsy 02:27 PM 146 / 90 83 98 % 17 02:32 PM 142 / 81 68 96 % 12 02:37 PM 147 / 86 80 97 % 21 02:42 PM 153 / 85 75 94 % 15 02:47 PM 143 / 87 79 93 % 17 02:52 PM 140 / 78 78 92 % 23 02:57 PM 149 / 79 75 93 % 26 03:02 PM 145 / 82 78 93 % 12 03:07 PM 150 / 82 76 93 % 17 03:12 PM 152 / 86 81 93 % 27 03:17 PM 146 / 86 77 94 % 30 02:23 PM 172 / 100 78 95 % 13 03:22 PM 150 / 86 79 95 % 18 03:27 PM 156 / 91 77 94 % 8 03:32 PM 153 / 90 78 94 % 19 03:37 PM 141 / 89 77 94 % 11 03:43 PM 155 / 97 78 95 % 17 03:47 PM 164 / 87 78 94 % 17 03:52 PM 159 / 94 74 94 % 16 03:57 PM 164 / 92 80 94 % 18 04:02 PM 141 / 89 75 94 % 15 04:07 PM 141 / 95 78 93 % 14 Procedural Medications Time Medication Dose Units Method Given By 02:19 PM Oxygen 2 L/min nasal cannula Eulogio Lemon RN 02:20 PM Versed 1 mg Intravenous Eulogio Lemon RN 02:20 PM Fentanyl 50 mcg Intravenous Eulogio Lemon RN 02:37 PM Lidocaine 2% 10 ml Subcutaneous Diogo Bosch MD 02:38 PM Versed 0.5 mg Intravenous Eulogio Lemon RN 02:38 PM Fentanyl 25 mcg Intravenous Eulogio Lemon RN 02:55 PM Aggrastat Bolus: 58 ml Intravenous Eulogio Lemon RN 02:56 PM Aggrastat 12.5mg/250ml 21 ml/hr Intravenous Eulogio Lemon RN 02:59 PM Heparin 4000 units Intravenous Eulogio Lemon RN 03:59 PM Nitroglycerin 200 mcg Intracoronary Diogo Bosch MD 04:04 PM Plavix 75 mg Orally Eulogio Lemon RN 04:12 PM Zofran 4 mg Orally Eulogio Lemon RN ASA Classification: CLASS II- Mild systemic disease (i.e. well-controlled diabetes, hypertension, asthma, cigarette smoking) Fide Score Preprocedure Postprocedure Activity 2- Moves 4 extremities sustained head lift Activity 2- Moves 4 extremities sustained head lift Circulation 2- SBP +/= 20 points of pre-anesthetic level Circulation 2- SBP +/= 20 points of pre-anesthetic level Consciousness 2- Awake and alert oriented x 3 Consciousness 2- Awake and alert oriented x 3 O2 Saturation 2- Able to maintain O2 satruation of 92% on room air O2 Saturation 2- Able to maintain O2 satruation of 92% on room air Respiratory 2- Able to deep breathe and cough well Respiratory 2- Able to deep breathe and cough well Total Score 10 Total Score 10 Contrast Agent: Isovue Diagnostic Contrast: 322 ml Total Contrast: 322 ml Fluoro Dose: 244 mGy Activated Clotting Time Time Seconds to Clot 02:57 PM 158 Procedure Log Time Note Enter By 02:16 PM 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 Informed consent was obtained. PM ASA Class CLASS II- Mild systemic disease (i.e. well-controlled diabetes, hypertension, asthma, cigarette smoking) PM Procedure start 14:19 : PM CathStat 02: PM Time: 14:19 Patient comfortable and pain free: Yes PM Time: 14:19LOC: 5 = Fully awake and oriented or at pre-proc level PM Time: 14:19 Oxygen on at 2 L/min per nasal cannula by Eulogio Lemon RN jhamilton 02:20 PM Time: 14:20 Fentanyl 50 mcg Intravenous Given by Eulogio Lemon RN 02:20 PM Hair removed from procedure site in holding area using clippers. Bilateral groin prepped with Chloraprep by Bryanna Welsh (R), then patient was draped. Skin intact. 02:20 PM Time: 14:20 Versed 1 mg Intravenous Given by Eulogio Lemon RN 02:21 PM Vitals capture started with the following parameters, Patient=Adult, Interval=5 min, Initial Nzfxgrmg=717 mmHg, Deflation Rate=3 mmHg, Cuff placed on Right Arm 02:23 PM HR=78 bpm, NYKB=730/100 mmhg, SpO2=95.0 %, Resp=13 B/min 02:27 PM HR=83 bpm, GWKV=423/90 mmhg, SpO2=98.0 %, Resp=17 B/min 02:28 PM Recorded ECG: HR=80 Condition=Condition 1 02:28 PM Pressure channel 1 zero failed. 02:28 PM Pressure channel 1 zero failed. 02:29 PM Pressure channel 1 zero failed. 02:29 PM Pressure channel 1 zero failed. 02:30 PM Pressure channel 1 zeroed. 02:32 PM HR=68 bpm, XPAK=581/81 mmhg, SpO2=96.0 %, Resp=12 B/min 02:34 PM Time: 14:19LOC: 4 = Oriented but drowsy 02:34 PM Time: 14:19 Patient comfortable and pain free: Yes [facility] 02:37 PM HR=80 bpm, GTUE=010/86 mmhg, SpO2=97.0 %, Resp=21 B/min 02:37 PM Time out was performed according to hospital policy. Conscious sedation and anesthesia was achieved (see medication log with in this report above) [facility] 02:37 PM Time: 14:37 10 ml Lidocaine 2% to right groin Subcutaneous Given by MD winston Panda 02:38 PM Time: 14:38 Versed .5 mg Intravenous Given by Eulogio Lemon RN 02:38 PM Time: 14:38 Fentanyl 25 mcg Intravenous Given by Eulogio Lemon RN 02:38 PM Micro-Introducer Kit utilized for sheath placement [facility] 02:39 PM Bolus angiogram of right Femoral complete: hand injection amil 02:40 PM Access obtained by percutaneous puncture. 6Fr 10cm Terumo Laurel sheath placed in right Femoral artery. [id number] amil 02:40 PM 0.035 145cm Navilyst 3mmJ wire [id number] amil 02:40 PM 5Fr FR 4 catheter inserted over the wire DNC amil 02:42 PM HR=75 bpm, NPQT=214/85 mmhg, SpO2=94.0 %, Resp=15 B/min 02:43 PM RCA angiography performed in multiple views. amil 02:43 PM Recorded Pressure: Ao, HR=70, Condition=Condition 1 (Aorta) Ao 120/84/102 02:44 PM 0.035 260cm Navilyst 3mmJ wire [id number] jhamil 02:44 PM Catheter removed amil 02:44 PM 5Fr FL 4 catheter inserted over the wire DN amil 02:47 PM HR=79 bpm, GUFP=480/87 mmhg, SpO2=93.0 %, Resp=17 B/min 02:47 PM Catheter removed amil 02:48 PM 5Fr FL5 catheter inserted over the wire [id number] amil 02:49 PM Time: 14:34 Patient comfortable and pain free: Yes 02:49 PM Time: 14:34LOC: 4 = Oriented but drowsy jhamil 02:49 PM LCA angiography performed in multiple views. amil 02:50 PM Recorded Pressure: Ao, HR=77, Condition=Condition 1 (Aorta) Ao 54/15/39 02:52 PM HR=78 bpm, CTAD=185/78 mmhg, SpO2=92.0 %, Resp=23 B/min 02:52 PM Inflation device was opened. amil 02:53 PM .014 [employer] [place] 190cm guide wire across target lesion- unsuccessful. reused? No amil 02:53 PM 6Fr CLS 3.5 Runway guide catheter was used to cannulate the PCI vessel successfully. reused? No amil 02:56 PM Time: 14:55 Aggrastat Bolus: 58 ml Intravenous Given by Eulogio Lemon RN Jacques pump 02:56 PM Time: 14:56 Aggrastat 12.5mg/250ml 21 ml/hr Intravenous Given by Eulogio Lemon RN Jacques pump amil 02:57 PM At 14:57 the ACT was 158 seconds. amil 02:57 PM HR=75 bpm, EIDL=600/79 mmhg, SpO2=93.0 %, Resp=26 B/min 02:57 PM Lesion found in Mid Circumflex. Pre Stenosis: 95 Pre JAKI Flow: 3: Complete and Brisk Flow/Perfusion jhamil:57 PM Circumflex, Obtuse Marginal, Left Posterior Descending, and Left Posterolateral Coronary Arteries with 95 % stenosis. If graft is supplying this area, 0 % stenosis jhamilton 02:58 PM PCI Status Elective jhamilton 02:58 PM PCI lesion in Mid Circumflex. Pre Stenosis: 95 Pre JAKI Flow: 3: Complete and Brisk Flow/Perfusion amil 02:59 PM Time: 14:59 Heparin 4000 units Intravenous Given by Eulogio Lemon RN 03:02 PM HR=78 bpm, EODV=074/82 mmhg, SpO2=93.0 %, Resp=12 B/min 03:03 PM Guide catheter removed intact. 03:03 PM 6Fr CLS 4 Runway guide catheter was used to cannulate the PCI vessel unsuccessfully. reused? No jhamilton 03:04 PM Time: 14:49LOC: 4 = Oriented but drowsy amil 03:04 PM Time: 14:49 Patient comfortable and pain free: Yes amilton 03:07 PM HR=76 bpm, NQPY=208/82 mmhg, SpO2=93.0 %, Resp=17 B/min 03:11 PM .014 Production Planning Manager 50 190cm guide wire across target lesion- unsuccessful. reused? No amilton 03:12 PM HR=81 bpm, XGNK=111/86 mmhg, SpO2=93.0 %, Resp=27 B/min 03:13 PM Recorded Pressure: Ao, HR=72, Condition=Condition 1 (Aorta) Ao 126/65/91 03:17 PM HR=77 bpm, VGIC=891/86 mmhg, SpO2=94.0 %, Resp=30 B/min 03:19 PM Time: 15:04 Patient comfortable and pain free: Yes jhamilton 03:20 PM Time: 15:04LOC: 4 = Oriented but drowsy jhamilton 03:22 PM HR=79 bpm, ELNE=931/86 mmhg, SpO2=95.0 %, Resp=18 B/min 03:23 PM Production Planning Manager 50 removed in tact. jhamilton 03:24 PM .014 Whis[place] 300cm guide wire across target lesion- unsuccessful. reused? No jhamilton 03:26 PM Recorded Pressure: Ao, HR=78, Condition=Condition 1 (Aorta) Ao 140/73/103 03:27 PM Reshaping Whisper guide wire. jhamilton 03:27 PM HR=77 bpm, BPOG=015/91 mmhg, SpO2=94.0 %, Resp=8 B/min 03:29 PM 6Fr SuperCross FT Teleflex guide catheter was used to cannulate the PCI vessel unsuccessfully. reused? No jhamilton 03:32 PM HR=78 bpm, HZEC=000/90 mmhg, SpO2=94.0 %, Resp=19 B/min 03:35 PM Time: 15:20LOC: 4 = Oriented but drowsy jhamilton 03:35 PM Time: 15:19 Patient comfortable and pain free: Yes jhamilton 03:37 PM HR=77 bpm, NAGE=279/89 mmhg, SpO2=94.0 %, Resp=11 B/min 03:39 PM 2.0 mm x 12 mm Emerge Monorail balloon across target lesion- successful. reused? No jhamilton 03:40 PM SuperCrosss Mcrocatheter removed intact jhamilton 03:41 PM Balloon inflated @ 6 [place] for 6 seconds jhamilton 03:42 PM Balloon inflated @ 6 chapito for 9 seconds jhamilton 03:42 PM Balloon inflated @ 8 chapito for 5 seconds jhamilton 03:43 PM Balloon inflated @ 8 chapito for 12 seconds jhamilton 03:43 PM Balloon inflated @ 10 chapito for 12 seconds jhamilton 03:43 PM HR=78 bpm, XWIG=764/97 mmhg, SpO2=95.0 %, Resp=17 B/min 03:43 PM Recorded Pressure: Ao, HR=70, Condition=Condition 1 (Aorta) Ao 120/65/90 03:44 PM Balloon inflated @ 10 chapito for 14 seconds jhamilton 03:44 PM Balloon inflated @ 10 chapito for 10 seconds jhamilton 03:44 PM Balloon inflated @ 10 chapito for 7 seconds jhamilton 03:45 PM Balloon inflated @ 10 chapito for 13 seconds jhamilton 03:45 PM Balloon inflated @ 10 chapito for 10 seconds jhamilton 03:46 PM Balloon catheter removed intact. jhamilton 03:46 PM 2.5 mm x 20 mm Emerge Monorail balloon across target lesion- successful. reused? No jhamilton 03:47 PM Recorded Pressure: Ao, HR=73, Condition=Condition 1 (Aorta) Ao 147/76/107 03:47 PM HR=78 bpm, JOVV=128/87 mmhg, SpO2=94.0 %, Resp=17 B/min 03:48 PM Balloon inflated @ 6 chapito for 11 seconds jhamilton 03:49 PM Balloon inflated @ 6 chapito for 8 seconds jhamilton 03:49 PM Balloon inflated @ 8 chapito for 30 seconds jhamilton 03:50 PM Time: 15:35LOC: 4 = Oriented but drowsy jhamilton 03:50 PM Time: 15:35 Patient comfortable and pain free: Yes jhamilton 03:50 PM Balloon inflated @ 10 chapito for 30 seconds jhamilton 03:51 PM Balloon inflated @ 10 chapito for 30 seconds jhamilton 03:52 PM Balloon inflated @ 12 chapito for 30 seconds jhamilton 03:52 PM HR=74 bpm, IRRC=743/94 mmhg, SpO2=94.0 %, Resp=16 B/min 03:52 PM Balloon catheter removed intact. jhamilton 03:57 PM HR=80 bpm, DKWR=119/92 mmhg, SpO2=94.0 %, Resp=18 B/min 03:57 PM 2.75mm x [id number] Synergy drug-eluting stent across target lesion- unsuccessul Lot #[id number] winston 03:59 PM Time: 15:59 Nitroglycerin 200 mcg Intracoronary Given by Diogo Bosch MD 04:00 PM Guide wire removed intact. winston 04:00 PM Guide catheter removed intact. winston 04:01 PM Procedure completed at 16:01 04/03/2019 winston 04:02 PM HR=75 bpm, QAOH=982/89 mmhg, SpO2=94.0 %, Resp=15 B/min 04:03 PM Coronary Dominance: right winston 04:04 PM Time: 16:04 Plavix 75 mg Orally Given by Eulogio Lemon RN 04:05 PM Time: 15:50 Patient comfortable and pain free: [facility] 04:07 PM Sign out completed: Radiation Dose 3050.46 mGy, 244 Gy/cm2 Fluoro Time: 42.4 Isovue 370 - 200ml contrast 322 ml given by Diogo Bosch MD. Complications: None. 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 Sedation minutes 82. Cardiac Rehab Consult needed: Yes. Confirmed administered medications: Yes [facility] 04:07 PM Isovue 370 - 125ml,3 Bottle(s) used. [facility] 04:07 PM HR=78 bpm, AJYB=002/95 mmhg, SpO2=93.0 %, Resp=14 B/min 04:07 PM Arterial sheath pulled, Angio-seal closure device used and was Successful [id number] S/N. [facility] 04:07 PM Estimated Blood Loss: minimal [facility] :07 PM Post ECG NSR [facility] 04:07 PM Post Blood Pressure 141/95 [facility] 04:07 PM Information taught Cardiac Cath, PCI, and Angioseal [facility] 04:08 PM Education needs Procedure, Plan of Care, and Responsibilities of Patient in Care [facility] 04:08 PM Learning barriers :None [facility] 04:08 PM Education Methods Verbal [facility] 04:08 PM Education evaluation Able to repeat information [facility] 04:08 PM Site status No bleeding/ No Hematoma - Rt Groin as reported by Andra Patel RT (R) at 16:08 [facility] 04:08 PM Opsite applied [facility] 04:12 PM Report given to Jaya RAPHAEL Pt taken to [facility] Room #25. 16:08 amil 04:13 PM Time: 16:12 Zofran 4 mg Orally Given by Eulogio Lemon RN [facility] 04:16 PM Lesion found in Mid RCA. Pre Stenosis: 50 Pre JAKI Flow: amilton 04:16 PM Lesion found in Distal RCA. Pre Stenosis: 60 Pre JAKI Flow: amil 04:16 PM Lesion found in 2nd Marginal. Pre Stenosis: 100 Pre JAKI Flow: amil 04:17 PM Right Coronary, Right Posterior Descending Arteries with Right Posterolateral and Acute Marginal branches with 60 % stenosis. If graft is supplying this area, 0 % stenosis [facility] 04:17 PM Circumflex, Obtuse Marginal, Left Posterior Descending, and Left Posterolateral Coronary Arteries with 100 % stenosis. If graft is supplying this area, 0 % stenosis winston 04:18 PM Delay to floor No filiberto 04:18 PM Patient out of room: 16:18 winston 04:18 PM Family placed in consult room. winston Complications Complication None Hemodynamics Pressures Site Systolic/A Wave Diastolic/V Wave Mean AO 120 84 102 AO 54 15 39 AO 126 65 91 AO 140 73 103 AO 120 65 90 AO 147 76 107 Post Procedure Information Blood Pressure: 141/95 mmHg Rhythm: NSR Closure Device Time Device Success/Fail 04/03/2019 4:17:00 PM Angio-Seal VIP Successful Site Checks Time Location Status Staff Sheath In? Note 04:08 PM Rt Groin No bleeding/ No Hematoma Andra Patel RT (R) Pulses Time Site Pre-Procedure Post-Procedure Note Bilateral DP & PT 2+ Bilateral radial 2+ Updated by Lety Webster RT (R) on 04/03/2019 4:20:59 PM electronically signed on 04/07/2019 4:06:31 PM with status of Final
== END 2019-04-04 13:31 | disposition home or self-care (01) | DRG 251 ==
LOC: 2NENU → SUATTDRO 23:14
PROVIDERS: ADMIT Internal Medicine; ATTEND Internal Medicine

== ENCOUNTER 2020-11-08 08:37 | Inpatient (IN) ==
[2020-11-08] MEDS ORDERED: *HR* HYDROcodone/Acet 5/325 mg TABLET PO PRN (13:31)
[2020-11-08] MEDS ORDERED: Ondansetron 4 MG/2 ML VIAL IVP PRN (13:31)
[2020-11-08] MEDS ORDERED: Naloxone 0.4 MG/ML INJ IVP PRN (13:31)
[2020-11-08] MEDS ORDERED: Perflutren Lipid Microsphere 1.3 ML in 0.9 % Sodium Chloride 8.7 ML IVP PRN (13:34)
[2020-11-08] MEDS ORDERED: Fluticasone Propionate Nasal 50 MCG/SPRAY BOTTLE NS PRN (13:49)
[2020-11-08] MEDS ORDERED: Nitroglycerin 0.4 MG TAB.SUBL SL PRN (13:49)
[2020-11-08] MEDS: Ipratropium/Albuterol Neb 3 ML IH SCH ×3 (15:52→23:24)
[2020-11-08] MEDS: Furosemide 20 MG/2 ML VIAL IVP SCH (18:06)
[2020-11-08] MEDS: *HR* Heparin 5,000 UNIT/ML VIAL SQ SCH (18:06)
[2020-11-08] MEDS: MethylPREDNISolone 40 MG/ML VIAL IVP SCH (18:07)
[2020-11-08] MEDS: allopurinoL 100 MG TABLET PO SCH (20:56)
[2020-11-09 02:24] LABS: Basophils % 0.1 %; Hematocrit 47.3 % (37.5-50.1); Hemoglobin 15.4 g/dL (12.9-16.9); Immature Granulocytes % 0.6 % (0-4); Lymphocytes # 0.7 K/mcL (0.6-4.6); Lymphocytes % 5.5 %; Mean Corpuscular HGB Conc 32.6 g/dL (31.6-35.5); Mean Corpuscular Hemoglobin 30.7 pg (28.0-33.3); Mean Corpuscular Volume 94.2 fL (83.0-100.0); Mean Platelet Volume 10.5 fL (9.4-12.4); Monocytes # 0.1 K/mcL (0.0-1.3); Monocytes % 1.1 %; Neutrophils # 11.7 K/mcL (1.6-8.9); Platelet Count 186 K/mcL (140-400); Red Blood Count 5.02 M/mcL (4.19-5.50); Red Cell Distribution Width 13.4 % (11.5-14.5); Segmented Neutrophils % 92.7 %; White Blood Count 12.6 K/mcL (4.3-11.1)
[2020-11-09 02:43] LABS: BUN/Creatinine Ratio 22 (6-26); Blood Urea Nitrogen 28 mg/dL (8-23); Calcium 9.5 mg/dL (8.6-10.3); Carbon Dioxide 30 mEq/L (23-29); Chloride 104 mEq/L (98-107); Glucose 157 mg/dL (70-105); Magnesium 1.7 mg/dL (1.6-2.6); Osmolality,Calculated 301 (280-300); Sodium 141 mEq/L (136-145); eGFR For African Americans > 60 (> 60); eGFR For Non-African Americans 53 (> 60)
[2020-11-09] MEDS: Ipratropium/Albuterol Neb 3 ML IH SCH ×5 (03:52→19:35)
[2020-11-09] MEDS: MethylPREDNISolone 40 MG/ML VIAL IVP SCH ×2 (06:03→17:29)
[2020-11-09] MEDS: *HR* Heparin 5,000 UNIT/ML VIAL SQ SCH ×3 (06:03→21:17)
[2020-11-09] MEDS: allopurinoL 100 MG TABLET PO SCH ×2 (08:52→21:17)
[2020-11-09] MEDS: amLODIPine 5 MG TABLET PO SCH (08:53)
[2020-11-09] MEDS: Cholecalciferol (D-3) 1,000 UNIT (25MCG) TABLET PO SCH ×2 (08:53→21:17)
[2020-11-09] MEDS: Furosemide 20 MG/2 ML VIAL IVP SCH ×2 (09:00→17:28)
[2020-11-09] MEDS: Aspirin Enteric Coated 81 MG Tablet PO SCH (09:06)
[2020-11-10] MEDS: Ipratropium/Albuterol Neb 3 ML IH SCH ×7 (00:35→23:28)
[2020-11-10 03:31] LABS: Basophils % 0.1 %; Hematocrit 43.4 % (37.5-50.1); Hemoglobin 14.6 g/dL (12.9-16.9); Immature Granulocytes % 0.5 % (0-4); Lymphocytes # 0.8 K/mcL (0.6-4.6); Lymphocytes % 5.1 %; Mean Corpuscular HGB Conc 33.6 g/dL (31.6-35.5); Mean Corpuscular Hemoglobin 31.8 pg (28.0-33.3); Mean Corpuscular Volume 94.6 fL (83.0-100.0); Monocytes # 0.3 K/mcL (0.0-1.3); Monocytes % 1.9 %; Neutrophils # 14.3 K/mcL (1.6-8.9); Platelet Count 176 K/mcL (140-400); Red Blood Count 4.59 M/mcL (4.19-5.50); Red Cell Distribution Width 13.5 % (11.5-14.5); Segmented Neutrophils % 92.4 %; White Blood Count 15.5 K/mcL (4.3-11.1)
[2020-11-10 03:49] LABS: BUN/Creatinine Ratio 35 (6-26); Blood Urea Nitrogen 44 mg/dL (8-23); Calcium 9.3 mg/dL (8.6-10.3); Carbon Dioxide 26 mEq/L (23-29); Chloride 102 mEq/L (98-107); Glucose 147 mg/dL (70-105); Osmolality,Calculated 302 (280-300); Potassium 4.1 mEq/L (3.5-5.1); Sodium 139 mEq/L (136-145); eGFR For African Americans > 60 (> 60); eGFR For Non-African Americans 55 (> 60)
[2020-11-10] MEDS: MethylPREDNISolone 40 MG/ML VIAL IVP SCH ×2 (05:40→17:59)
[2020-11-10] MEDS: *HR* Heparin 5,000 UNIT/ML VIAL SQ SCH ×3 (05:41→21:19)
[2020-11-10] MEDS: Furosemide 20 MG/2 ML VIAL IVP SCH ×2 (09:55→17:11)
[2020-11-10] MEDS: Aspirin Enteric Coated 81 MG Tablet PO SCH (09:55)
[2020-11-10] MEDS: amLODIPine 5 MG TABLET PO SCH (09:56)
[2020-11-10] MEDS: allopurinoL 100 MG TABLET PO SCH ×2 (09:56→19:43)
[2020-11-10] MEDS: Cholecalciferol (D-3) 1,000 UNIT (25MCG) TABLET PO SCH ×2 (09:56→19:43)
[2020-11-10] MEDS: levoFLOXacin 750 MG TABLET PO SCH (11:49)
[2020-11-11] MEDS: Ipratropium/Albuterol Neb 3 ML IH SCH ×3 (04:04→11:28)
[2020-11-11] MEDS: MethylPREDNISolone 40 MG/ML VIAL IVP SCH (04:50)
[2020-11-11] MEDS: *HR* Heparin 5,000 UNIT/ML VIAL SQ SCH (04:52)
[2020-11-11 06:03] LABS: Basophils % 0.1 %; Immature Granulocytes % 0.5 % (0-4); Lymphocytes % 7.6 %; Mean Corpuscular HGB Conc 32.6 g/dL (31.6-35.5); Mean Corpuscular Hemoglobin 30.7 pg (28.0-33.3); Mean Corpuscular Volume 94.1 fL (83.0-100.0); Mean Platelet Volume 11.1 fL (9.4-12.4); Monocytes # 0.5 K/mcL (0.0-1.3); Monocytes % 4.2 %; Neutrophils # 11.2 K/mcL (1.6-8.9); Platelet Count 174 K/mcL (140-400); Red Blood Count 4.89 M/mcL (4.19-5.50); Red Cell Distribution Width 13.6 % (11.5-14.5); Segmented Neutrophils % 87.6 %; White Blood Count 12.7 K/mcL (4.3-11.1)
[2020-11-11 06:38] LABS: BUN/Creatinine Ratio 36 (6-26); Blood Urea Nitrogen 47 mg/dL (8-23); Calcium 9.4 mg/dL (8.6-10.3); Carbon Dioxide 28 mEq/L (23-29); Chloride 103 mEq/L (98-107); Glucose 145 mg/dL (70-105); Osmolality,Calculated 307 (280-300); Potassium 4.1 mEq/L (3.5-5.1); Sodium 141 mEq/L (136-145); eGFR For African Americans > 60 (> 60); eGFR For Non-African Americans 52 (> 60)
[2020-11-11] MEDS: Aspirin Enteric Coated 81 MG Tablet PO SCH (09:38)
[2020-11-11] MEDS: Furosemide 20 MG/2 ML VIAL IVP SCH (09:38)
[2020-11-11] MEDS: levoFLOXacin 750 MG TABLET PO SCH (09:39)
[2020-11-11] MEDS: amLODIPine 5 MG TABLET PO SCH (09:39)
[2020-11-11] MEDS: allopurinoL 100 MG TABLET PO SCH (09:39)
[2020-11-11] MEDS: Cholecalciferol (D-3) 1,000 UNIT (25MCG) TABLET PO SCH (09:39)
[2020-11-11 11:12] VITALS: BP 145/74
== END 2020-11-11 15:08 | disposition home or self-care (01) | DRG 291 ==
LOC: 2ANU → SUATTDRO 11:21
PROVIDERS: ADMIT Internal Medicine; ATTEND Family Medicine

== ENCOUNTER 2021-10-02 15:35 | Inpatient (IN) ==
[2021-10-02] MEDS ORDERED: Acetaminophen 325 MG TABLET PO PRN (17:17)
[2021-10-02] MEDS ORDERED: Naloxone 0.4 MG/ML INJ IVP PRN (17:17)
[2021-10-02] MEDS ORDERED: Ondansetron 4 MG/2 ML VIAL IVP PRN (17:17)
[2021-10-02] MEDS ORDERED: *HR* Enoxaparin 80 MG/0.8 ML SYRINGE SQ ONE (18:56)
[2021-10-02] MEDS: allopurinoL 100 MG TABLET PO SCH (20:41)
[2021-10-02] MEDS: Doxycycline 100 MG CAPSULE PO SCH (20:41)
[2021-10-02] MEDS: Cholecalciferol (D-3) 1,000 UNIT (25MCG) TABLET PO SCH (20:41)
[2021-10-02] MEDS: 0.9 % Sodium Chloride 1,000 ML IVC SCH (20:41)
[2021-10-02] MEDS: Budesonide/Formoterol 160/4.5 1 PUFF INH IH SCH (21:02)
[2021-10-02] MEDS: Ampicillin/Sulbactam 1,500 MG in 0.9 % Sodium Chloride Mini Bag 100 ML IVPB SCH (23:31)
[2021-10-03 02:53] LABS: Hematocrit 42.4 % (37.5-50.1); Hemoglobin 13.9 g/dL (12.9-16.9); Immature Granulocytes % 0.3 % (0-4); Lymphocytes # 0.2 K/mcL (0.6-4.6); Lymphocytes % 1.8 %; Mean Corpuscular HGB Conc 32.8 g/dL (31.6-35.5); Mean Corpuscular Hemoglobin 31.9 pg (28.0-33.3); Mean Corpuscular Volume 97.2 fL (83.0-100.0); Mean Platelet Volume 10.5 fL (9.4-12.4); Monocytes # 0.1 K/mcL (0.0-1.3); Monocytes % 0.7 %; Neutrophils # 11.3 K/mcL (1.6-8.9); Platelet Count 178 K/mcL (140-400); Red Blood Count 4.36 M/mcL (4.19-5.50); Red Cell Distribution Width 13.3 % (11.5-14.5); Segmented Neutrophils % 97.2 %; White Blood Count 11.6 K/mcL (4.3-11.1)
[2021-10-03 03:11] LABS: Calcium 7.6 mg/dL (8.6-10.3); Potassium 4.1 mEq/L (3.5-5.1)
[2021-10-03 03:35] LABS: Albumin 3.5 g/dL (3.5-5.7); Albumin/Globulin Ratio 1.4 (1.1-2.2); Bilirubin,Total 1.4 mg/dL (0.3-1.0); Calcium 7.5 mg/dL (8.6-10.3); Globulin 2.5 g/dL (2.4-3.5); Potassium 4.3 mEq/L (3.5-5.1)
[2021-10-03] MEDS: Ampicillin/Sulbactam 1,500 MG in 0.9 % Sodium Chloride Mini Bag 100 ML IVPB SCH ×3 (06:30→17:48)
[2021-10-03] MEDS: Budesonide/Formoterol 160/4.5 1 PUFF INH IH SCH ×2 (07:37→20:52)
[2021-10-03] MEDS: Cholecalciferol (D-3) 1,000 UNIT (25MCG) TABLET PO SCH ×2 (09:04→21:46)
[2021-10-03] MEDS: allopurinoL 100 MG TABLET PO SCH ×2 (09:04→21:46)
[2021-10-03] MEDS: Doxycycline 100 MG CAPSULE PO SCH ×2 (09:04→21:46)
[2021-10-03] MEDS: 0.9 % Sodium Chloride 1,000 ML IVC SCH (11:54)
[2021-10-03] MEDS: Aspirin Enteric Coated 81 MG Tablet PO SCH (17:47)
[2021-10-04] MEDS: Ampicillin/Sulbactam 1,500 MG in 0.9 % Sodium Chloride Mini Bag 100 ML IVPB SCH ×4 (00:04→16:50)
[2021-10-04 01:45] LABS: Basophils % 0.1 %; Hematocrit 39.9 % (37.5-50.1); Hemoglobin 12.7 g/dL (12.9-16.9); Immature Granulocytes % 0.3 % (0-4); Lymphocytes # 0.9 K/mcL (0.6-4.6); Lymphocytes % 7.8 %; Mean Corpuscular HGB Conc 31.8 g/dL (31.6-35.5); Mean Corpuscular Hemoglobin 31.2 pg (28.0-33.3); Mean Platelet Volume 10.5 fL (9.4-12.4); Monocytes % 8.2 %; Neutrophils # 9.8 K/mcL (1.6-8.9); Platelet Count 160 K/mcL (140-400); Red Blood Count 4.07 M/mcL (4.19-5.50); Red Cell Distribution Width 13.6 % (11.5-14.5); Segmented Neutrophils % 83.6 %; White Blood Count 11.8 K/mcL (4.3-11.1)
[2021-10-04 02:02] LABS: BUN/Creatinine Ratio 33 (6-26); Blood Urea Nitrogen 40 mg/dL (8-23); Calcium 7.4 mg/dL (8.6-10.3); Carbon Dioxide 26 mEq/L (23-29); Chloride 108 mEq/L (98-107); Glucose 109 mg/dL (70-105); Osmolality,Calculated 302 (280-300); Potassium 4.3 mEq/L (3.5-5.1); Sodium 141 mEq/L (136-145); eGFR For African Americans > 60 (> 60); eGFR For Non-African Americans 57 (> 60)
[2021-10-04] MEDS: Budesonide/Formoterol 160/4.5 1 PUFF INH IH SCH ×2 (08:15→19:59)
[2021-10-04] MEDS: Doxycycline 100 MG CAPSULE PO SCH ×2 (08:40→21:08)
[2021-10-04] MEDS: Aspirin Enteric Coated 81 MG Tablet PO SCH (08:40)
[2021-10-04] MEDS: allopurinoL 100 MG TABLET PO SCH ×2 (08:40→21:08)
[2021-10-04] MEDS: Cholecalciferol (D-3) 1,000 UNIT (25MCG) TABLET PO SCH ×2 (08:40→21:08)
[2021-10-05] MEDS: Ampicillin/Sulbactam 1,500 MG in 0.9 % Sodium Chloride Mini Bag 100 ML IVPB SCH ×3 (01:51→13:56)
[2021-10-05] MEDS: Budesonide/Formoterol 160/4.5 1 PUFF INH IH SCH (07:42)
[2021-10-05] MEDS: Aspirin Enteric Coated 81 MG Tablet PO SCH (09:04)
[2021-10-05] MEDS: Cholecalciferol (D-3) 1,000 UNIT (25MCG) TABLET PO SCH (09:04)
[2021-10-05] MEDS: allopurinoL 100 MG TABLET PO SCH (09:05)
[2021-10-05] MEDS: Doxycycline 100 MG CAPSULE PO SCH (09:05)
[2021-10-05] MEDS ORDERED: Furosemide 20 MG TABLET PO SCH (09:45)
[2021-10-05 15:49] VITALS: BP 150/74; PULSE 78; TEMP 97.9; O2SAT 92
== END 2021-10-05 16:45 | disposition home health service (06) | DRG 871 ==
LOC: 3NENU → SUATTDRO 17:18
PROVIDERS: ADMIT Family Medicine; ATTEND Internal Medicine